=== PATIENT | female | born 1930 | race Caucasian/White ===

== ENCOUNTER 2017-08-28 00:52 | Inpatient (IN) | payer MEDICARE ==
[2017-08-28] MEDS ORDERED: NS 0.9% 1000 ML* 1,000 ML IV ONE (01:28)
[2017-08-28] MEDS ORDERED: NS 0.9% 1000 ML* 1,000 ML IV SCH (01:45)
[2017-08-28 02:52] LABS: Hematocrit 40 % (35-47); Hemoglobin 13.7 g/dl (12.0-16.0); Mean Corpuscular HGB Conc 34 g/dl (31-36); Mean Corpuscular Hemoglobin 27 pg (27-31); Mean Corpuscular Volume 79 fL (80-97); Mean Platelet Volume 9 um3 (7.4-10.4); Red Blood Count 5.14 10^6/ul (4.0-5.4); Red Cell Distribution Width 17 % (10.5-15)
[2017-08-28 03:08] LABS: Albumin 3.6 g/dL (3.2-5.2); BUN/Creatinine Ratio 15.1 (8-20); Calcium 9.1 mg/dL (8.6-10.3); EGFR African American 80.7 (>60); EGFR Non-African American 62.7 (>60); Globulin 2.7 g/dL (2-4); Magnesium 1.8 mg/dL (1.9-2.7); Potassium 3.4 mmol/L (3.5-5.0); Total Bilirubin 0.7 mg/dL (0.2-1.0); Total Protein 6.3 g/dL (6.4-8.9)
[2017-08-28] MEDS ORDERED: Acetaminophen SUPP* 650 MG SUPP PR PRN (04:02)
[2017-08-28] MEDS ORDERED: Ondansetron INJ* 2 MG/ML VIAL IV PRN (04:06)
[2017-08-28] MEDS ORDERED: HYDROmorphone INJ* 1 MG/ML CARPUJECT SYRINGE IV PRN (04:06)
--- NOTE | 2017-08-28 04:13 | HP ---
H&P (Free Text) History and Physical: PCP: Lakeisha Torres MD Date/Time: 08/28/2017 0410 CC: abdominal pain HPI: Mrs Christensen is an 87YO female HX cholecystectomy & ovarian CA treated in part with surgery. She presented to [place] ED with complaint of abdominal pain & N/V. She is uncertain as to onset stating, "I'm an old lady and don't remember too well." She thinks her last BM was 2 days ago and unremarkable. She does not recall passing flatus yesterday. [place] work up identified an SBO for which she was transferred for surgical consultation and for control of her intractable N/V. She denies F/C, sweats, bloody/black content in the emesis, chest pain, SOB, or other issues. Upon arrival to ED an NG was inserted to suction yielding 350cc thin green fluid and resolving her nausea. Additionally, the ED physician was able to reduce a left abdominal wall hernia with subsequent resolution of her pain. As such, we will admit her to the surgical unit, monitor NG output, and consider initiating clear liquids this AM pending clinical course. PMedHx HTN ovarian CA, no evidence of disease Ambulatory Orders Calcium 1,200 mg PO DAILY 08/28/17 Cholecalciferol [Vitamin D] 1,000 unit PO DAILY 08/28/17 Garlic [Odorless Garlic] 1,250 mg PO DAILY 08/28/17 Hydrochlorothiazide TAB* [Hydrodiuril TAB*] 25 mg PO DAILY 08/28/17 Allergies No Known Allergies Allergy (Verified 08/28/17 01:03) PSurgHx ovarian CA surgery cholecystectomy SocHx: no tobacco or recreational drugs, 1 alcoholic drink yearly; , lives alone, 2 children who live in the area; full code status FamHx: denies; children are healthy ROS: as above, otherwise reviewed and all were negative vitals: Vital Signs Temp 36.9 C 08/28/17 05:07 Pulse 80 08/28/17 04:58 Resp 16 08/28/17 01:02 BP 136/63 08/28/17 05:00 Pulse Ox 90 08/28/17 04:58 Intake & Output 08/27/17 08/27/17 08/28/17 11:59 23:59 11:59 Intake Total 148 Output Total 300 Balance -152 Weight 80.286 kg Intake: IV Fluids 148 Output: NG Tube Drainage Amount 300 Constitutional: NAD, normally developed, overweight elderly white female HEENM: atraumatic; sclera/conjunctiva: anicteric/clear; hearing: clinically intact; oropharynx: clear, mucosa moist Neck: soft tissue: non-tender; thyroid: normal Pulmonary: clear to auscultation bilaterally, good aeration, no accessory muscle use CV: RR/RR, normal S1S2, no carotid bruit, no jugular venous distention, 2+ B DP/ PT, no edema Abdominal: soft, non-distended, mild R lateral tenderness, no rebound/guarding/ rigidity, normoactive bowel sounds, no hepatosplenomegaly or masses, no costovertebral angle tenderness Musculoskeletal: general: grossly intact, no palpable tenderness Integumental: normal appearance and texture of exposed skin Psychiatric orientation: AA&O to PPS affect: calm mood: pleasant, cooperative eye contact: good content: reliable memory: impaired responses: timely insight: good Testing: Lab Results 08/28/17 08/28/17 08/28/17 Range/Units 02:33 02:33 02:33 WBC (3.5-10.8) 10^3/ul RBC (4.0-5.4) 10^6/ul Hgb (12.0-16.0) g/dl Hct (35-47) % MCV (80-97) fL MCH (27-31) pg MCHC (31-36) g/dl RDW (10.5-15) % Plt Count (150-450) 10^3/ul MPV (7.4-10.4) um3 Neut % (Auto) (38-83) % Lymph % (Auto) (25-47) % [place] % (Auto) (1-9) % Eos % (Auto) (0-6) % Baso % (Auto) (0-2) % Absolute Neuts (auto) (1.5-7.7) 10^3/ul Absolute Lymphs (auto) (1.0-4.8) 10^3/ul Absolute Monos (auto) (0-0.8) 10^3/ul Absolute Eos (auto) (0-0.6) 10^3/ul Absolute Basos (auto) (0-0.2) 10^3/ul Absolute Nucleated RBC 10^3/ul Nucleated RBC % INR (Anticoag Therapy) 1.00 (0.89-1.11) APTT 29.1 (26.0-36.3) seconds Sodium 136 (133-145) mmol/L Potassium 3.4 L (3.5-5.0) mmol/L Chloride 100 L (101-111) mmol/L Carbon Dioxide 29 (22-32) mmol/L Anion Gap 7 (2-11) mmol/L BUN 13 (6-24) mg/dL Creatinine 0.86 (0.51-0.95) mg/dL Est GFR ( Amer) 80.7 (>60) Est GFR (Non-Af Amer) 62.7 (>60) BUN/Creatinine Ratio 15.1 (8-20) Glucose 128 H (70-100) mg/dL Lactic Acid (0.5-2.0) mmol/L Calcium 9.1 (8.6-10.3) mg/dL Magnesium 1.8 L (1.9-2.7) mg/dL Total Bilirubin 0.70 (0.2-1.0) mg/dL AST 26 (13-39) U/L ALT 27 (7-52) U/L Alkaline Phosphatase 68 (34-104) U/L C-Reactive Protein 51.00 H (< 5.00) mg/L Total Protein 6.3 L (6.4-8.9) g/dL Albumin 3.6 (3.2-5.2) g/dL Globulin 2.7 (2-4) g/dL Albumin/Globulin Ratio 1.3 (1-3) Amylase 22 L (29-103) U/L Lipase 17 (11.0-82.0) U/L Urine Color Urine Appearance Urine pH (5-9) Ur Specific [place] (1.010-1.030) Urine Protein (Negative) Urine Ketones (Negative) Urine Blood (Negative) Urine Nitrate (Negative) Urine Bilirubin (Negative) Urine Urobilinogen (Negative) Ur Leukocyte Esterase (Negative) Urine WBC (Auto) (Absent) Urine RBC (Auto) (Absent) Ur Squamous Epith Cells (Absent) Ur Renal Epithelial Cell (Absent) Urine Bacteria (Absent) Urine Glucose (Negative) Blood Type Pending Antibody Screen Pending 08/28/17 08/28/17 08/28/17 Range/Units 02:33 02:33 03:27 WBC 12.0 H (3.5-10.8) 10^3/ul RBC 5.14 (4.0-5.4) 10^6/ul Hgb 13.7 (12.0-16.0) g/dl Hct 40 (35-47) % MCV 79 L (80-97) fL MCH 27 (27-31) pg MCHC 34 (31-36) g/dl RDW 17 H (10.5-15) % Plt Count 228 (150-450) 10^3/ul MPV 9 (7.4-10.4) um3 Neut % (Auto) 81.9 (38-83) % Lymph % (Auto) 11.3 L (25-47) % [place] % (Auto) 5.3 (1-9) % Eos % (Auto) 0.6 (0-6) % Baso % (Auto) 0.9 (0-2) % Absolute Neuts (auto) 9.8 H (1.5-7.7) 10^3/ul Absolute Lymphs (auto) 1.4 (1.0-4.8) 10^3/ul Absolute Monos (auto) 0.6 (0-0.8) 10^3/ul Absolute Eos (auto) 0.1 (0-0.6) 10^3/ul Absolute Basos (auto) 0.1 (0-0.2) 10^3/ul Absolute Nucleated RBC 0 10^3/ul Nucleated RBC % 0 INR (Anticoag Therapy) (0.89-1.11) APTT (26.0-36.3) seconds Sodium (133-145) mmol/L Potassium (3.5-5.0) mmol/L Chloride (101-111) mmol/L Carbon Dioxide (22-32) mmol/L Anion Gap (2-11) mmol/L BUN (6-24) mg/dL Creatinine (0.51-0.95) mg/dL Est GFR ( Amer) (>60) Est GFR (Non-Af Amer) (>60) BUN/Creatinine Ratio (8-20) Glucose (70-100) mg/dL Lactic Acid 0.9 (0.5-2.0) mmol/L Calcium (8.6-10.3) mg/dL Magnesium (1.9-2.7) mg/dL Total Bilirubin (0.2-1.0) mg/dL AST (13-39) U/L ALT (7-52) U/L Alkaline Phosphatase (34-104) U/L C-Reactive Protein (< 5.00) mg/L Total Protein (6.4-8.9) g/dL Albumin (3.2-5.2) g/dL Globulin (2-4) g/dL Albumin/Globulin Ratio (1-3) Amylase (29-103) U/L Lipase (11.0-82.0) U/L Urine Color Narda Urine Appearance Cloudy Urine pH 5.0 (5-9) Ur Specific [place] 1.020 (1.010-1.030) Urine Protein Negative (Negative) Urine Ketones Trace H (Negative) Urine Blood Negative (Negative) Urine Nitrate Negative (Negative) Urine Bilirubin Negative (Negative) Urine Urobilinogen Negative (Negative) Ur Leukocyte Esterase 3+ H (Negative) Urine WBC (Auto) 3+(>20/hpf) H (Absent) Urine RBC (Auto) 2+(6-10/hpf) H (Absent) Ur Squamous Epith Cells Present H (Absent) Ur Renal Epithelial Cell Present H (Absent) Urine Bacteria Absent (Absent) Urine Glucose Negative (Negative) Blood Type Antibody Screen ECG, personally reviewed: sinus RBBB rate 80, T-wave inversions V1-2 & III, no ischemia CXR, personally reviewed: poor inspiration, no acute process XRY abd, personally reviewed: dilated bowel with scattered air/fluid levels consistent with SBO CT abd/pel WO, personally reviewed: (Carlos) FINDINGS: Positive for small bowel obstruction. There are multiple dilated loops of small bowel with air- fluid levels. The source of the obstruction might be a left lower anterior abdominal wall hernia. The small bowel loops distal to the hernia do have air- fluid levels and are mildly dilated but less so than the proximal loops. It is therefore difficult to confirm that the hernia is actually the source of the bowel obstruction. Recommend re-evaluation after hernia reduction. No free air. Extensive sigmoid diverticulosis. No diverticulitis or colitis. Normal appendix. No acute abnormalities of the liver, spleen, pancreas, or adrenal glands. No urinary tract obstruction. Impression: 87F presenting with abdominal pain, N/V with finding of SBO DIAGNOSIS & PLAN Primary SBO : likely 2nd LLQ abdominal wall hernia reduced in ED : NG to low intermittent suction : strict I&Os : IVFs : pain control : consider surgical consult pending clinical course : supportive care L abdominal wall hernia : reduced : consider inpatient consult for consideration of repair to prevent recurrence hypoKalemia & hypoMagnesemia : replace Secondary HTN : hold HCTZ for now, monitor HX ovarian CA : no evidence of disease Admission Rational: inpatient for SBO not anticipated to be adequately resolved w/i 48H to allow for discharge DVTp: SCDs, heparin SQ Code Status: full HCP: children
[2017-08-28 04:17] LABS: Urine Bacteria Absent (Absent); Urine Bilirubin Negative (Negative); Urine Glucose Negative (Negative); Urine Nitrite Negative (Negative)
--- NOTE | 2017-08-28 04:27 | ED ---
Mary Cerda Nilda, scribed for Clemencia Rivera MD on 08/28/17 at 0143 . GI/ HPI - HPI Summary HPI Summary: This patient is an 87 year old F BIBA from [facility] to [facility] for SBO today. Symptoms aggravated and alleviated nothing. Patient reports abd pain ( resolved), vomiting, and no BM for the past few days. Patient denies similar episode in the past. Medication includes hydrochlorothiazide. - History of Current Complaint Chief Complaint: EDAbdPain Time Seen by Provider: 08/28/17 01:12 Stated Complaint: BOWEL OBSTRUCTION Hx Obtained From: Patient, Medical Records Onset/Duration: Started Hours Ago, Still Present Timing: Constant Current Severity: None Location of Pain: Diffuse Additional Signs & Symptoms: Positive: Other: - abd pain (resolved), vomiting, and no BM for the past few days. Aggravating Factor(s): Nothing Alleviating Factor(s): Nothing - Allergy/Home Medications Allergies/Adverse Reactions: Allergies Allergy/AdvReac Type Severity Reaction Status Date / Time No Known Allergies Allergy Verified 08/28/17 01:03 Home Medications: Home Medications Calcium 1,200 mg PO DAILY 08/28/17 [History Confirmed 08/28/17] Cholecalciferol [Vitamin D] 1,000 unit PO DAILY 08/28/17 [History Confirmed ] Garlic [Odorless Garlic] 1,250 mg PO DAILY 08/28/17 [History Confirmed 08/28/17] Hydrochlorothiazide TAB* [Hydrodiuril TAB*] 25 mg PO DAILY 08/28/17 [History Confirmed 08/28/17] PMH/Surg Hx/FS Hx/Imm Hx Sensory History: Reports: Hx Contacts or Glasses EENT History: Denies: Hx Deafness Infectious Disease History: No Infectious Disease History: Denies: Traveled Outside the [place] in Last 30 Days Review of Systems Negative: Shortness Of Breath Positive: Abdominal Pain, Vomiting, Other - no BM All Other Systems Reviewed And Are Negative: Yes Physical Exam - Summary Physical Exam Summary: GENERAL: Patient is a well-developed and nourished (MALE OR FEMALE) who is lying comfortable in the stretcher. Patient is not in any acute respiratory distress. HEAD AND FACE: No signs of trauma. No ecchymosis, hematomas or skull depressions. No sinus tenderness. EYES: PERRLA, EOMI x 2, No injected conjunctiva, no nystagmus. EARS: Hearing grossly intact. Ear canals and tympanic membranes are within normal limits. MOUTH: Oropharynx within normal limits. NECK: Supple, trachea is midline, no adenopathy, no JVD, no carotid bruit, no c- spine tenderness, neck with full ROM. CHEST: Symmetric, no tenderness at palpation LUNGS: Clear to auscultation bilaterally. No wheezing or crackles. CVS: Regular rate and rhythm, S1 and S2 present, no murmurs or gallops appreciated. ABDOMEN: Soft, non-tender. Mild to moderate abd distention. No rebound no guarding. Bowel sounds are hyperactive. Small umbilical hernia and left ventral hernia in LLQ. EXTREMITIES: FROM in all major joints, no edema, no cyanosis or clubbing. NEURO: Alert and oriented x 3. No acute neurological deficits. Speech is normal and follows commands. SKIN: Dry and warm Triage Information Reviewed: Yes Vital Signs On Initial Exam: Initial Vitals Temp Pulse Resp BP Pulse Ox 98.6 F 75 16 134/67 94 08/28/17 01:02 08/28/17 01:02 08/28/17 01:02 08/28/17 01:02 08/28/17 01:02 Vital Signs Reviewed: Yes Procedures - Procedure Summary Procedure Summary: Pt placed in Trendelenburg position and reduced hernia. Diagnostics - Vital Signs Vital Signs Temp Pulse Resp BP Pulse Ox 08/28/17 01:02 98.6 F 75 16 134/67 94 - Laboratory Result Diagrams: 08/28/17 02:33 08/28/17 02:33 Lab Statement: Any lab studies that have been ordered have been reviewed, and results considered in the medical decision making process. - Radiology CXR Radiology Interpretation Completed By: ED Physician - EGT in good position. NAD. Abd XR Radiology Interpretation Completed By: ED Physician - Abd XR reveals that patient still has dilated SBO. - CT Abd/Pel CT Interpretation Completed By: Radiologist - CT Abd/Pel, per radiologist, reveals: there are no involutional changes with moderate ventriculomegaly. Recommend comparing with prior scans sure the ventriculomegaly has not worsened. Chronic microvascular changes in the cerebral white matter. No hemorrhage. No mass. No detectable acute infarct. Osseous structures are intact. ED physician has reviewed this radiology report and agrees. Abd/Pel Addendum CT Interpretation Completed By: Radiologist - CT Abd/Pel addendum: Positive for SBO. There are multiple dilated loops of small bowel with air fluid levels. The source of the obstruction might be a left lower anterior abdominal wall hernia. The small bowel loops distal to the hernia do have air-fluid levels and are mildly dilated but less so than the proximal loops. It is therefore more difficult to confirm that the hernia is actually the source of the bowel obstruction. Recommend reevaluation after hernia reduction. no free air. Extensive sigmoid diverticulosis. No diverticulitis or colitis. Normal appendix. No acute abnormalities of the liver, spleen, pancreas, or adrenal glands. No urinary tract obstruction. Note made also of a small periumbilical hernia containing no bowel. The L1 compression fracture indeterminate age. Mild loss of height of T10 indeterminate age. ED Physician has reviewed this report and agrees. - EKG 0203 Cardiac Rate: NL EKG Rhythm: Sinus Rhythm - 80 bpm EKG Interpretation: RBBB Re-Evaluation - Re-Evaluation First Eval Re-Evaluation Time: 02:50 Comment: Left ventral hernia in LLQ was reduced. Pt feels better. Sent for Abd Xray. Second Eval Re-Evaluation Time: 03:36 Comment: Pt feels better. Reviewed labs with patient. GIGU Course/Dx - Course Course Of Treatment: This patient is an 87 year old F BIBA from [facility] to [facility] for SBO today. Symptoms aggravated and alleviated nothing. Patient reports abd pain (resolved), vomiting, and no BM for the past few days. Patient denies similar episode in the past. Medication includes hydrochlorothiazide. Pending EKG, CXR, and CT Abd/Pel. CT Abd/Pel, per radiologist, reveals: there are no involutional changes with moderate ventriculomegaly. Recommend comparing with prior scans sure the ventriculomegaly has not worsened. Chronic microvascular changes in the cerebral white matter. No hemorrhage. No mass. No detectable acute infarct. Osseous structures are intact. ED physician has reviewed this radiology report and agrees. CT Abd/Pel addendum: Positive for SBO. There are multiple dilated loops of small bowel with air fluid levels. The source of the obstruction might be a left lower anterior abdominal wall hernia. The small bowel loops distal to the hernia do have air-fluid levels and are mildly dilated but less so than the proximal loops. It is therefore more difficult to confirm that the hernia is actually the source of the bowel obstruction. Recommend reevaluation after hernia reduction. no free air. Extensive sigmoid diverticulosis. No diverticulitis or colitis. Normal appendix. No acute abnormalities of the liver , spleen, pancreas, or adrenal glands. No urinary tract obstruction. Note made also of a small periumbilical hernia containing no bowel. The L1 compression fracture indeterminate age. Mild loss of height of T10 indeterminate age. EKG reveals NSR, 80 bpm, RBBB. CXR reveals NAD. Left ventral hernia reduced and pt felt better. Pending Abd XR. Abd XR reveals that patient still has dilated SBO. [0356] Dr. Quinn (hospitalist) agrees to admit patient. Pt is stable and will be admitted with Dx of SBO and abdominal hernia. Pt understands and is agreeable with this plan. - Diagnoses Provider Diagnoses: SBO (small bowel obstruction), Hernia of abdominal cavity - Physician Notifications Discussed Care Of Patient With: Josef Quinn - Hospitalist Time Discussed With Above Provider: 03:56 Instructed by Provider To: Admit As Inpatient Discharge - Discharge Plan Condition: Stable Disposition: ADMITTED TO [facility] Referrals: Brian ROSALES,Andrei Castillo [Primary Care Provider] - The documentation as recorded by the Mary vásquez Nilda accurately reflects the service I personally performed and the decisions made by , Clemencia Rivera MD.
[2017-08-28] MEDS: NS 0.9% 1000 ML* 1,000 ML IV SCH ×2 (05:24→20:06)
[2017-08-28] MEDS ORDERED: KCL 20 MEQ/100 ML IVPREMIX* 20 MEQ/100 ML BAG IV ONE (05:44)
[2017-08-28] MEDS ORDERED: Magnesium Sulfate 2 GM IV* 2 GM/50 ML BAG IVPB ONE (05:44)
[2017-08-28 06:23] LABS: Hematocrit 39 % (35-47); Hemoglobin 13.2 g/dl (12.0-16.0); Mean Corpuscular HGB Conc 33 g/dl (31-36); Mean Corpuscular Hemoglobin 27 pg (27-31); Mean Corpuscular Volume 79 fL (80-97); Mean Platelet Volume 9 um3 (7.4-10.4); Red Blood Count 4.96 10^6/ul (4.0-5.4); Red Cell Distribution Width 18 % (10.5-15); White Blood Count 10.6 10^3/ul (3.5-10.8)
[2017-08-28 06:38] LABS: BUN/Creatinine Ratio 13.8 (8-20); Calcium 8.6 mg/dL (8.6-10.3); EGFR African American 79.6 (>60); EGFR Non-African American 61.9 (>60); Potassium 3.4 mmol/L (3.5-5.0)
--- NOTE | 2017-08-28 08:44 | RAD ---
INDICATION: Follow-up small bowel obstruction COMPARISON: CT abdomen pelvis dated August 27, 2017. TECHNIQUE: 2 views the abdomen were obtained. FINDINGS: There is a gastric tube terminating below the level the diaphragm at the expected location of the gastric antrum. In the left abdomen there is gas filled dilated small bowel measuring up to 3.9 cm in diameter corresponding to CT images acquired the previous day. There is gas and stool seen throughout the nondilated colon. There is no evidence of free air in the peritoneal cavity. Extensive surgical material is seen overlying the abdomen. IMPRESSION: AIR-FILLED DILATED LOOPS OF SMALL BOWEL MEASURING UP TO 3.9 CM IN DIAMETER CORRESPONDING TO FINDINGS SEEN ON THE PREVIOUS DAY CT. THERE IS NO RADIOGRAPHIC EVIDENCE OF BOWEL PERFORATION.
--- NOTE | 2017-08-28 09:37 | RAD ---
INDICATION: Placement of nasogastric tube COMPARISON: CT abdomen pelvis dated August 27, 2017 TECHNIQUE: Single AP portable view of the chest and 6 views of the abdomen were obtained. FINDINGS: Image quality is compromised due to the relative inferiority of a portable chest x-ray. There is a questionable 3 cm density overlying the right hilum relative to the left. The patient appears to be making a poor inspiratory effort causing the lung volumes appear decreased. The lungs are otherwise adequately aerated. There is a gastric tube terminating below the midline diaphragm with the tip overlying the expected location of the gastric antrum. There are dilated loops of air-filled small bowel measuring up to 4 cm in diameter. IMPRESSION: 1. Questionable asymmetric 3 cm density overlying the right hilum relative to the left. There is no prior chest imaging available for comparison to comment on chronicity. Further characterization could BE made with either standard multiview chest x-ray or contrast-enhanced CT of the chest on a nonemergent basis. 2. Appropriately positioned gastric tube according to radiographic standards. 3. Dilated loops of air-filled small bowel measuring up to 4 cm in diameter similar to images on the prior CT.
--- NOTE | 2017-08-28 09:58 | PN ---
Subjective Date of Service: 08/28/17 Interval History: HOSPITALIST PROGRESS NOTE Patient seen and examined at bedside. She feels better this AM. Abdominal pain is resolved, no further episodes of N/V , passed flatus earlier today. Family History: Unchanged from Admission Social History: Unchanged from Admission Past Medical History: Unchanged from Admission Objective Active Medications: Acetaminophen (Tylenol Supp*) 650 mg DE Q6H PRN PRN Reason: FEVER/PAIN Heparin Sodium (Porcine) (Heparin Vial(*)) 5,000 units SUBCUT Q8HR MARIE Hydromorphone HCl (Dilaudid Injic*) 0.5 mg IV Q2H PRN PRN Reason: PAIN Sodium Chloride (Ns 0.9% 1000 Ml*) 1,000 mls @ 85 mls/hr IV PER [facility] Last Admin: 08/28/17 05:24 Dose: 85 mls/hr Potassium Chloride (Potassium Chloride 10 Meq/50 Ml Ivpremix*) 10 meq in 50 mls @ 50 mls/hr IV Q2H [facility] Stop: 08/28/17 12:59 Ondansetron HCl (Zofran Inj*) 4 mg IV Q6H PRN PRN Reason: NAUSEA Vital Signs 08/28/17 08/28/17 08/28/17 05:00 05:07 06:16 Temperature 98.4 F 99.0 F Pulse Rate 83 Respiratory 20 Rate Blood Pressure 136/63 155/71 (mmHg) O2 Sat by Pulse 93 Oximetry Oxygen Devices in Use Now: None Appearance: Elderly lady lying in bed in NAD. Eyes: No Scleral Icterus Ears/Nose/Mouth/Throat: Mucous Membranes Moist Neck: Trachea Midline Respiratory: Symmetrical Chest Expansion and Respiratory Effort, Clear to Auscultation Cardiovascular: RRR - Normal S1 and S2 Abdominal: - - Infraumbilical old midline surgical scar, soft, NT, ND, BS+ and hypoactive Extremities: No Edema Neurological: Alert and Oriented x 3, NL Muscle Strength and Tone Lines/Tubes/Other Access: Clean, Dry and Intact Naso-enteral Tube, Clean, Dry and Intact Peripheral IV Result Diagrams: 08/28/17 06:15 08/28/17 06:15 Assess/Plan/Problems-Billing Assessment: Mrs. Christensen is an 87yo F with PMH of HTN, ovarian CA s/p resection, transferred from [facility] with c/o abdominal pain, N/V, found to have an episode of SBO. - Patient Problems (1) SBO (small bowel obstruction) Comment: - Likely secondary to ventral hernia reduced in ED. - Symptoms are much improved. - D/c NGT and start clear liquid diet. - Surgery consult requested with Dr. Shaw. (2) Hypokalemia Comment: - Replete. (3) HTN (hypertension) Comment: - PO meds on hold for now. - Hydralazine IV PRN. (4) DVT prophylaxis Comment: - SQ heparin. (5) Full code status Status and Disposition: Inpatient for management of SBO.
[2017-08-28] MEDS ORDERED: hydrALAZINE IV* 20 MG/ML VIAL IV SLOW PU PRN (10:03)
[2017-08-28] MEDS: KCL 10 MEQ/50 ML IVPREMIX* 10 MEQ/50 ML BAG IV SCH ×2 (11:22→13:36)
--- NOTE | 2017-08-28 12:16 | CONS ---
CC: Dr. Andrei Torres; [facility] * SURGICAL CONSULTATION REPORT: DATE OF CONSULT: The patient seen on short stay unit on 08/28/17. HISTORY OF PRESENT ILLNESS: I was contacted by the hospitalist service to evaluate Ms. Christensen, an 87-year-old female who presented to [facility] yesterday with a 2-day history of upper abdominal pain, cramping, and nausea and vomiting. The patient's workup there included a CT scan and labs and the patient was diagnosed with a small bowel obstruction and transferred to our institution. She was admitted by the hospitalist service and overnight was given IV fluids and had an NG tube placed, approximately 250 cc of output was noted and the NG tube was removed this morning and the patient was started on a clear diet. The patient states that she is supposed to follow up with her ear, nose, and throat doctor after an excision of a chin lesion 2 weeks prior. She was unable to make that appointment on Friday because she was not feeling well. Her memory of all of this is somewhat poor, but I received the notes also from the medical record as well as from the patient. She continued to have nausea and vomiting and kept a vomit basin with her. This let to her not eating food because then she would not be nauseous. She was burping a fair amount. She does not recall obstipation or constipation. She does not recall her last bowel movement, but it was recorded in the chart as 2 days prior to the admission. The patient denies any previous similar symptoms. Her abdominal pain that she describes is not significant, but rather crampy in the upper abdomen, nonradiating and described as "gas pains." PAST MEDICAL HISTORY: Hypertension and ovarian cancer. PAST SURGICAL HISTORY: Cholecystectomy and possible oophorectomy, she is not sure of the side. MEDICATIONS: Medication list reviewed. SOCIAL HISTORY: She lives alone. She is . Her children are nearby and look after her. REVIEW OF SYSTEMS: No significant weight loss or weight gain. No fevers or chills. Abdominal complaints as described. Nausea as described. No dysuria. Not aware of constipation. Poor exercise tolerance. No bleeding or clotting disorders. No endocrine disorders. PHYSICAL EXAM: She is afebrile. T-max 99. Vital signs are stable. She is alert and oriented x3. She is in no apparent distress. She does have appetite. Head, ears, eyes, nose, and throat: Normocephalic and atraumatic. Sclerae anicteric. Mucous membranes are moist. Neck: No lymphadenopathy. Abdomen is soft and nondistended. Tender at the umbilicus on deep palpation. Ventral hernia is noted in the lower abdomen on the left side. This appears large and is easily reducible, but there is some tenderness. There are no overlying skin changes. No rebound tenderness. The patient's tenderness was resolved as soon as the examination was over. She has hypoactive bowel sounds. No masses. Rectal exam not performed. Extremities: Within normal limits. LABORATORY DATA: Labs show white count of 10, H and H 13/39. Chemistry panel within normal limits with the exception of a low potassium. Her magnesium is 1.8 yesterday and she had an elevated CRP of 51. Urinalysis is negative for nitrites. CT scan through the [place] reviewed. This is a noncontrast study shows dilated loops of bowel extending towards the left lower quadrant hernia, appears broad necked with possibly decompressed bowel at the exit site consistent with possible small bowel obstruction. She does have stool and air in the colon. Today, the patient underwent an x-ray, which does show mildly dilated small bowel loops up to 3.9 cm. IMPRESSION AND PLAN: Elderly woman with ventral hernia, unclear of the time line of this hernia, but I would imagine it is a quite longstanding. It appears broad necked and did I believe lead to a small bowel obstruction over the course of this week. The patient is improved with IV fluids. She may additionally benefit with a bowel regimen. Hernia goes in and out with ease, but I would recommend strong consideration of repair either laparoscopically or open to prevent additional trips to the hospital for what amounts of small bowel obstruction with a possibility that this is secondary to the ventral hernia. I described with her that we would like to consider her for a surgical option as an outpatient. She would like to defer to her daughter. I do not believe she warrants urgent surgical intervention at this time. We will follow her as she is hospitalized and look towards the followup as an outpatient. [id number]/[facility] #: [id number] MTDD
[2017-08-29 05:46] LABS: BUN/Creatinine Ratio 12.8 (8-20); EGFR African American 90.3 (>60); EGFR Non-African American 70.2 (>60); Magnesium 2.2 mg/dL (1.9-2.7); Potassium 3.8 mmol/L (3.5-5.0)
[2017-08-29] MEDS ORDERED: Heparin VIAL(*) 5000 UNITS/ML VIAL (FIVE THOUSAND) SUBCUT SCH (06:00)
--- NOTE | 2017-08-29 07:41 | PN ---
Progress Note - Progress Note Date of Service: 08/29/17 Note: Surgery Ms. Christensen reports she feels better, she is hungry, she has passed flatus, she denies nausea. Vital Signs 08/28/17 08/28/17 08/28/17 08:00 11:32 15:48 Temperature 98.2 F 97.7 F Pulse Rate 73 74 Respiratory 16 16 16 Rate Blood Pressure 133/63 125/53 (mmHg) O2 Sat by Pulse 94 96 Oximetry 08/28/17 08/28/17 08/28/17 19:44 20:20 23:44 Temperature 97.3 F 98.4 F Pulse Rate 72 77 Respiratory 16 16 17 Rate Blood Pressure 136/62 145/61 (mmHg) O2 Sat by Pulse 96 96 Oximetry 08/29/17 03:28 Temperature 98.5 F Pulse Rate 69 Respiratory 16 Rate Blood Pressure 136/60 (mmHg) O2 Sat by Pulse 93 Oximetry Abd: Protruberant, good BS, soft, hernias at umbilicus and left lower abd are non-tender, reducible. Laboratory Results - last 24 hr 08/29/17 04:59 Sodium 136 Potassium 3.8 Chloride 106 Carbon Dioxide 27 Anion Gap 3 BUN 10 Creatinine 0.78 Est GFR ( Amer) 90.3 Est GFR (Non-Af Amer) 70.2 BUN/Creatinine Ratio 12.8 Glucose 106 H Calcium 8.0 L Magnesium 2.2 A/P: Resolving SBO possibly secondary to abdominal wall hernias. From surgical standpoint it is okay to advance diet and plan outpatient f/u for consideratioin of repair of hernias.
[2017-08-29 12:12] VITALS: BP 141/65
--- NOTE | 2017-08-30 20:11 | DS ---
CC: Dr. Andrei Torres; Dr. Shaw DISCHARGE SUMMARY: DATE OF ADMISSION: 08/28/17 DATE OF DISCHARGE: 08/29/17 PRIMARY CARE PROVIDER: Dr. Andrei Torres. CONSULTING SURGEON: Dr. Shaw. DISCHARGE DIAGNOSIS: Small bowel obstruction secondary to a ventral hernia. SECONDARY DIAGNOSES: 1. Hypertension. 2. History of ovarian carcinoma, status post resection. MEDICATIONS AT THE TIME OF DISCHARGE: 1. Calcium 1200 mg p.o. daily. 2. Cholecalciferol 1000 units p.o. daily. 3. Garlic 1250 mg p.o. daily. 4. Hydrochlorothiazide 25 mg p.o. daily. HOSPITAL COURSE: Mrs. Christensen is an 87-year-old lady with a past medical history as stated above that presented initially to [facility] ED with complaints of abdominal pain, nausea, and vomiting. The workup at [facility] revealed SBO and she was transferred to our facility for surgical evaluation. In the emergency room, the ED provider was able to reduce a ventral hernia and an NG tube was placed and the patient had significant improvement of her symptoms. Her KUB showed improvement. Her NG tube was removed and she was able to tolerate a clear liquid diet. She was seen in consultation by General Surgery (Dr. Shaw), his impression was that the patient is an elderly woman with ventral hernia, unclear of the timeline of the hernia, but he thought it was quite longstanding. It appears broad necked and he believes it led to small bowel obstruction over the course of this past week. The hernia goes in and out with ease, but he recommended strong consideration of repair either laparoscopically or open to prevent additional trips to the hospital for small bowel obstruction with a possibility that this is secondary to the ventral hernia. The patient's diet was advanced. She was able to tolerate a low fiber diet and she was discharged home to follow up with Dr. Torres and and Dr. Shaw as outpatient. PHYSICAL EXAMINATION: Vital Signs: Temperature 97.5, heart rate is 81, respiratory rate 16, oxygen saturation is 95% on room air, blood pressure is 139 /70. General: The patient is an elderly lady lying in bed in no acute distress. CVS: Normal S1, S2. Regular rate and rhythm. Chest: Breath sounds present bilaterally with no added sounds. Abdomen is obese, soft, nontender, and nondistended. Bowel sounds present. The ventral hernia is reduced. Extremities: No edema. Neuro: She is alert, oriented x3. Able to move all 4 extremities. DIET: Low-fiber diet for 2 weeks. ACTIVITIES: As tolerated. DISPOSITION: To home. STATUS WHILE IN THE HOSPITAL: Inpatient. TIME SPENT: Approximately 45 minutes was spent to complete this discharge. [id number]/[facility] #: [id number] TRAY
== END 2017-08-29 14:15 | disposition home or self-care (01) | DRG 395 ==
LOC: ED 00:52 → SSU 03:59
PROVIDERS: ADMIT Hospitalist; ATTEND Internal Medicine
PROC: 0D9670Z Drainage of Stomach with Drainage Device, Via Natural or Artificial Opening (ICD-10-PCS; principal; 2017-08-28)
DX: K43.6 Other and unspecified ventral hernia with obstruction, without gangrene (principal); E83.42 Hypomagnesemia; E87.6 Hypokalemia; E66.3 Overweight; I10 Essential (primary) hypertension; Z85.43 Personal history of malignant neoplasm of ovary; Z90.49 Acquired absence of other specified parts of digestive tract; Z68.28 Body mass index [BMI] 28.0-28.9, adult
CPT/HCPCS: 36415; 71010; 74000; 74020; 80048; 80053; 81003; 81015; 82150; 83605; 83690; 83735; 85025; 85027; 85610; 85730; 86140; 86850; 86900; 86901; 87040; 87086; 93005; A9270-GY; J1644; J3475; J3480

== ENCOUNTER 2017-08-30 15:09 | Inpatient (IN) | payer MEDICARE ==
[2017-08-30 17:57] LABS: Albumin 3.9 g/dL (3.2-5.2); BUN/Creatinine Ratio 11.3 (8-20); EGFR African American 100.6 (>60); EGFR Non-African American 78.2 (>60); Globulin 2.6 g/dL (2-4); Potassium 3.6 mmol/L (3.5-5.0); Total Bilirubin 0.9 mg/dL (0.2-1.0); Total Protein 6.5 g/dL (6.4-8.9)
[2017-08-30 17:58] LABS: Hematocrit 41 % (35-47); Hemoglobin 13.6 g/dl (12.0-16.0); Mean Corpuscular HGB Conc 33 g/dl (31-36); Mean Corpuscular Hemoglobin 27 pg (27-31); Mean Corpuscular Volume 80 fL (80-97); Mean Platelet Volume 9 um3 (7.4-10.4); Red Blood Count 5.11 10^6/ul (4.0-5.4); Red Cell Distribution Width 17 % (10.5-15); White Blood Count 7.9 10^3/ul (3.5-10.8)
--- NOTE | 2017-08-30 18:11 | RAD ---
INDICATION: Abdominal pain. COMPARISON: Comparison is made with prior studies from August 28, 2017. TECHNIQUE: Supine and upright views of the abdomen were obtained. FINDINGS: There is moderate distention of multiple small bowel loops with air-fluid levels. The colon appears nondistended. There are surgical clips which project in the right upper and in both lower quadrants. No free intraperitoneal air is seen although the study is limited due to cutting off the tops of the diaphragms. IMPRESSION: FINDINGS CONSISTENT WITH A SMALL BOWEL OBSTRUCTION.
--- NOTE | 2017-08-30 20:09 | HP ---
H&P (Free Text) History and Physical: PCP: Lakeisha Torres MD Date/Time: 08/30/20171999 CC: abdominal pain HPI: Mrs Christensen is an 87YO female HX cholecystectomy & ovarian CA treated in part with surgery. She originally presented to [facility] ED 08/28 with complaint of abdominal pain & N/V where a ventral hernia and SBO was diagnosed and she was transferred to [facility] [place] [place], observed overnight after her hernia was reduced in ED and her SBO appeared to have resolved and she was discharged 08/29. She awoke ~0200 this AM with recurrent generalized abdominal pain, nausea and dry heaves that have persisted prompting re-evaluation wherein an abdominal XRY confirms SBO. As such, she will be admitted, maintained NPO, given anti-emetics , & Tyrone Joel MD surgery has been consulted. PMedHx HTN ovarian CA, no evidence of disease Ambulatory Orders Calcium 1,200 mg PO DAILY 08/28/17 Cholecalciferol [Vitamin D] 1,000 unit PO DAILY 08/28/17 Garlic [Odorless Garlic] 1,250 mg PO DAILY 08/28/17 Hydrochlorothiazide TAB* [Hydrodiuril TAB*] 25 mg PO DAILY 08/28/17 Allergies No Known Allergies Allergy (Verified 08/28/17 01:03) SocHx: no tobacco or recreational drugs, 1 alcoholic drink yearly; , lives alone, 2 children who live in the area; full code status FamHx: denies; children are healthy ROS: as above, otherwise reviewed and all were negative vitals: Vital Signs Temp 36.4 C 08/30/17 15:25 Pulse 81 08/30/17 15:25 Resp 16 08/30/17 15:25 BP 139/70 08/30/17 15:25 Pulse Ox 95 08/30/17 15:25 Intake & Output 08/29/17 08/30/17 08/30/17 23:59 11:59 23:59 Weight 80.286 kg Constitutional: NAD, normally developed, overweight elderly white female HEENM: atraumatic; sclera/conjunctiva: anicteric/clear; hearing: clinically intact; oropharynx: clear, mucosa moist Neck: soft tissue: non-tender; thyroid: normal Pulmonary: clear to auscultation bilaterally, good aeration, no accessory muscle use CV: RR/RR, normal S1S2, no carotid bruit, no jugular venous distention, 2+ B DP/ PT, no edema Abdominal: soft, non-distended, mild latrice-umbilical tenderness, no rebound/ guarding/rigidity, normoactive bowel sounds, no hepatosplenomegaly or masses, no costovertebral angle tenderness; There is suggestion of a knuckle of bowel through her ventral hernia defect which is mild/moderately tender with sufficient pressure, but which I cannot reduce. Musculoskeletal: general: grossly intact, no palpable tenderness Integumental: normal appearance and texture of exposed skin Psychiatric orientation: AA&O to PPS affect: calm mood: pleasant, cooperative eye contact: good content: reliable memory: impaired responses: timely insight: good Testing: Lab Results 08/30/17 08/30/17 Range/Units 17:20 17:20 WBC 7.9 (3.5-10.8) 10^3/ul RBC 5.11 (4.0-5.4) 10^6/ul Hgb 13.6 (12.0-16.0) g/dl Hct 41 (35-47) % MCV 80 (80-97) fL MCH 27 (27-31) pg MCHC 33 (31-36) g/dl RDW 17 H (10.5-15) % Plt Count 256 (150-450) 10^3/ul MPV 9 (7.4-10.4) um3 Neut % (Auto) 73.4 (38-83) % Lymph % (Auto) 17.8 L (25-47) % [place] % (Auto) 6.4 (1-9) % Eos % (Auto) 1.7 (0-6) % Baso % (Auto) 0.7 (0-2) % Absolute Neuts (auto) 5.8 (1.5-7.7) 10^3/ul Absolute Lymphs (auto) 1.4 (1.0-4.8) 10^3/ul Absolute Monos (auto) 0.5 (0-0.8) 10^3/ul Absolute Eos (auto) 0.1 (0-0.6) 10^3/ul Absolute Basos (auto) 0.1 (0-0.2) 10^3/ul Absolute Nucleated RBC 0.01 10^3/ul Nucleated RBC % 0.2 Sodium 134 (133-145) mmol/L Potassium 3.6 (3.5-5.0) mmol/L Chloride 100 L (101-111) mmol/L Carbon Dioxide 26 (22-32) mmol/L Anion Gap 8 (2-11) mmol/L BUN 8 (6-24) mg/dL Creatinine 0.71 (0.51-0.95) mg/dL Est GFR ( Amer) 100.6 (>60) Est GFR (Non-Af Amer) 78.2 (>60) BUN/Creatinine Ratio 11.3 (8-20) Glucose 118 H (70-100) mg/dL Calcium 9.0 (8.6-10.3) mg/dL Total Bilirubin 0.90 (0.2-1.0) mg/dL AST 16 (13-39) U/L ALT 21 (7-52) U/L Alkaline Phosphatase 73 (34-104) U/L Total Protein 6.5 (6.4-8.9) g/dL Albumin 3.9 (3.2-5.2) g/dL Globulin 2.6 (2-4) g/dL Albumin/Globulin Ratio 1.5 (1-3) XRY abd, personally reviewed: dilated bowel with scattered air/fluid levels consistent with SBO Impression: 87F presenting with abdominal pain, N/V with finding of SBO DIAGNOSIS & PLAN Primary SBO ? 2nd ventral/latrice-umbilical wall hernia : likely 2nd LLQ abdominal wall hernia reduced in ED : strict I&Os : IVFs : pain control : Tyrone Joel MD surgery consulted, will arrange evaluation in AM : supportive care Secondary HTN : hold HCTZ for now, monitor HX ovarian CA : no evidence of disease Admission Rational: inpatient for SBO not anticipated to be adequately resolved w/i 48H to allow for discharge DVTp: SCDs, heparin SQ Code Status: full HCP: children
[2017-08-30] MEDS ORDERED: Acetaminophen SUPP* 650 MG SUPP PR PRN (20:16)
[2017-08-30] MEDS ORDERED: LORazepam INJ* 2 MG/ML 1 ML VIAL IV PRN (20:16)
[2017-08-30] MEDS ORDERED: fentaNYL* 50 MCG/ML 2 ML VIAL (100 MCG VIAL) IV SLOW PU PRN (20:16)
[2017-08-30] MEDS ORDERED: NS 0.9% 1000 ML* 1,000 ML IV SCH (20:30)
[2017-08-30] MEDS ORDERED: Famotidine IV * 20 MG in NS 0.9% 100 ML* 100 ML IVPB SCH (21:00)
[2017-08-30 21:15] LABS: EGFR African American 94.5 (>60); EGFR Non-African American 73.4 (>60)
[2017-08-30] MEDS: Famotidine IV* 10 MG/ML 2 ML (20 mg) IV SCH (22:44)
--- NOTE | 2017-08-30 23:44 | ED ---
Bibi Cerda Gabriel, scribed for Twin Dawn MD on 08/30/17 at 1845 . Abdominal Pain/Female - HPI Summary HPI Summary: This patient is a 87 year old F [facility] [place] by daughter with a chief complaint of gagging and dry heaving since this morning. Pt compares these symptoms with ones she had with her SBO 3 days ago. - History of Current Complaint Chief Complaint: EDAbdPain Stated Complaint: BOWEL OBSTRUCTION Time Seen by Provider: 08/30/17 18:26 Hx Obtained From: Patient Onset/Duration: Still Present Timing: Constant Pain Intensity: 0 Pain Scale Used: 0-10 Numeric Allergies/Adverse Reactions: Allergies Allergy/AdvReac Type Severity Reaction Status Date / Time No Known Allergies Allergy Verified 08/28/17 01:03 PMH/Surg Hx/FS Hx/Imm Hx Previously Healthy: No GI History: Reports: Hx Gall Bladder Disease Musculoskeletal History: Reports: Hx Back Problems Sensory History: Reports: Hx Contacts or Glasses Denies: Hx Deafness, Hx Hearing Aid Opthamlomology History: Reports: Hx Contacts or Glasses - Cancer History Cancer Type, Location and Year: Ovarian cancer - Surgical History Surgery Procedure, Year, and Place: [place]. Total hysterectomy Infectious Disease History: No Infectious Disease History: Denies: Hx Clostridium Difficile, Hx Hepatitis, Traveled Outside the [place] in Last 30 Days - Social History Alcohol Use: Rare Alcohol Amount: twice a year Substance Use Type: Reports: None Smoking Status (MU): Never Smoked Tobacco Review of Systems Negative: Fever, Chills Negative: Erythema Negative: Sore Throat Negative: Chest Pain Negative: Shortness Of Breath, Cough Positive: Abdominal Pain. Negative: Vomiting, Nausea Negative: dysuria, hematuria Negative: Myalgia, Edema Negative: Rash Neurological: Negative - dizziness All Other Systems Reviewed And Are Negative: Yes Physical Exam - Summary Physical Exam Summary: Constitutional: Well-developed, Well-nourished, Alert. (-) Distressed Skin: Warm, Dry HENT: Normocephalic; Atraumatic Eyes: Conjunctiva normal Neck: Musculoskeletal ROM normal neck. (-) JVD, (-) Stridor, (-) Tracheal deviation Cardio: Rhythm regular, rate normal, Heart sounds normal; Intact distal pulses; The pedal pulses are 2+ and symmetric. Radial pulses are 2+ and symmetric. (-) Murmur Pulmonary/Chest wall: Effort normal. (-) Respiratory distress, (-) Wheezes, (-) Rales Abd: Soft, (+) Tenderness to right of umbilicus, (-) Distension, (-) Guarding, ( -) Rebound, no palpable hernias. Musculoskeletal: (-) Edema Lymph: (-) Cervical adenopathy Neuro: Alert, Oriented x3 Psych: Mood and affect Normal Triage Information Reviewed: Yes Vital Signs On Initial Exam: Initial Vitals Temp Pulse Resp BP Pulse Ox 97.5 F 81 16 139/70 95 08/30/17 15:25 08/30/17 15:25 08/30/17 15:25 08/30/17 15:25 08/30/17 15:25 Vital Signs Reviewed: Yes - David Coma Scale Coma Scale Total: 15 Diagnostics - Vital Signs Vital Signs Temp Pulse Resp BP Pulse Ox 08/30/17 15:25 97.5 F 81 16 139/70 95 - Laboratory Lab Results: Lab Results 08/30/17 08/30/17 Range/Units 17:20 17:20 WBC 7.9 (3.5-10.8) 10^3/ul RBC 5.11 (4.0-5.4) 10^6/ul Hgb 13.6 (12.0-16.0) g/dl Hct 41 (35-47) % MCV 80 (80-97) fL MCH 27 (27-31) pg MCHC 33 (31-36) g/dl RDW 17 H (10.5-15) % Plt Count 256 (150-450) 10^3/ul MPV 9 (7.4-10.4) um3 Neut % (Auto) 73.4 (38-83) % Lymph % (Auto) 17.8 L (25-47) % [place] % (Auto) 6.4 (1-9) % Eos % (Auto) 1.7 (0-6) % Baso % (Auto) 0.7 (0-2) % Absolute Neuts (auto) 5.8 (1.5-7.7) 10^3/ul Absolute Lymphs (auto) 1.4 (1.0-4.8) 10^3/ul Absolute Monos (auto) 0.5 (0-0.8) 10^3/ul Absolute Eos (auto) 0.1 (0-0.6) 10^3/ul Absolute Basos (auto) 0.1 (0-0.2) 10^3/ul Absolute Nucleated RBC 0.01 10^3/ul Nucleated RBC % 0.2 Sodium 134 (133-145) mmol/L Potassium 3.6 (3.5-5.0) mmol/L Chloride 100 L (101-111) mmol/L Carbon Dioxide 26 (22-32) mmol/L Anion Gap 8 (2-11) mmol/L BUN 8 (6-24) mg/dL Creatinine 0.71 (0.51-0.95) mg/dL Est GFR ( Amer) 100.6 (>60) Est GFR (Non-Af Amer) 78.2 (>60) BUN/Creatinine Ratio 11.3 (8-20) Glucose 118 H (70-100) mg/dL Calcium 9.0 (8.6-10.3) mg/dL Total Bilirubin 0.90 (0.2-1.0) mg/dL AST 16 (13-39) U/L ALT 21 (7-52) U/L Alkaline Phosphatase 73 (34-104) U/L Total Protein 6.5 (6.4-8.9) g/dL Albumin 3.9 (3.2-5.2) g/dL Globulin 2.6 (2-4) g/dL Albumin/Globulin Ratio 1.5 (1-3) Result Diagrams: 08/30/17 17:20 08/30/17 17:20 Lab Statement: Any lab studies that have been ordered have been reviewed, and results considered in the medical decision making process. - Radiology XRAY ABD Radiology Interpretation Completed By: Radiologist - FINDINGS CONSISTENT WITH A SMALL BOWEL OBSTRUCTION. ED physician has reviewed this radiology report and agrees. Abdominal Pain Fem Course/Dx - Course Course Of Treatment: This patient is a 87 year old F [facility] [place] by daughter with a chief complaint of gagging and dry heaving since this morning. Pt compares these symptoms with ones she had with her SBO 3 days ago. Blood work was obtained. ABD XR reveals, per radiologist, FINDINGS CONSISTENT WITH A SMALL BOWEL OBSTRUCTION. In the ED course the patient was given Acetaminophen, Famotidine, Pentanyl Citrate, Heparin Citrate, Heparin sodium, Lorazepam, Ondansetron HCL, and sodium Chloride. We discussed patient care with Dr joel and they recommended no EG tube, admittance to medicine service, and diagnoses of SBO. Patient will be admitted for a SBO with follow up from Dr. Quinn. The patient is agreeable with this plan. - Diagnoses Provider Diagnoses: SBO (small bowel obstruction) - Provider Notifications Discussed Care Of Patient With: Katerina Joel Time Discussed With Above Provider: 19:07 Instructed by Provider To: Other - We discussed patient care with Dr joel and they recommended no EG tube, admittance to medicine service, and a diagnoses of SBO. Discharge - Discharge Plan Condition: Stable Disposition: ADMITTED TO [facility] Referrals: Andrei Torres DO [Primary Care Provider] - Consult Consult: 19:[address] Quinn , hospitalist and he has agreed to admit the patient. The documentation as recorded by the Bibi vásquez Gabriel accurately reflects the service I personally performed and the decisions made by , Twin Dawn MD.
[2017-08-31] MEDS: Heparin VIAL(*) 5000 UNITS/ML VIAL (FIVE THOUSAND) SUBCUT SCH ×3 (05:25→21:20)
[2017-08-31 05:31] LABS: Hematocrit 37 % (35-47); Hemoglobin 12.6 g/dl (12.0-16.0); Mean Corpuscular HGB Conc 34 g/dl (31-36); Mean Corpuscular Hemoglobin 27 pg (27-31); Mean Corpuscular Volume 79 fL (80-97); Mean Platelet Volume 9 um3 (7.4-10.4); Red Blood Count 4.71 10^6/ul (4.0-5.4); Red Cell Distribution Width 17 % (10.5-15); White Blood Count 8.7 10^3/ul (3.5-10.8)
[2017-08-31 05:43] LABS: BUN/Creatinine Ratio 11.4 (8-20); Calcium 8.5 mg/dL (8.6-10.3); EGFR African American 102.3 (>60); EGFR Non-African American 79.5 (>60); Potassium 3.5 mmol/L (3.5-5.0)
[2017-08-31] MEDS: Famotidine IV* 10 MG/ML 2 ML (20 mg) IV SCH ×2 (08:05→21:21)
[2017-08-31] MEDS ORDERED: Morphine INJ* 2 MG/ML 1 ML SYRINGE (TWO MG - NEW SYRINGE VERSION) IV PRN (08:19)
--- NOTE | 2017-08-31 08:20 | PN ---
Subjective Date of Service: 08/31/17 Interval History: HOSPITALIST PROGRESS NOTE Patient seen and examined at bedside. States abdominal pain is improved and she's hungry. Denies N/V. No flatus or BM. Family History: Unchanged from Admission Social History: Unchanged from Admission Past Medical History: Unchanged from Admission Objective Active Medications: Acetaminophen (Tylenol Supp*) 650 mg NM Q6H PRN PRN Reason: FEVER/PAIN Famotidine (Pepcid Iv*) 20 mg IV BID [facility] Last Admin: 08/31/17 08:05 Dose: 20 mg Heparin Sodium (Porcine) (Heparin Vial(*)) 5,000 units SUBCUT Q8HR [facility] Last Admin: 08/31/17 05:25 Dose: 5,000 units Potassium Chloride/Sodium Chloride (Ns 0.9% W/ 40 Meq Kcl 1000 Ml*) 1,000 mls @ 125 mls/hr IV PER RATE [facility] Lorazepam (Ativan Inj*) 0.5 mg IV BEDTIME PRN PRN Reason: SLEEP Morphine Sulfate (Morphine Inj (Syringe)*) 2 mg IV Q4H PRN PRN Reason: PAIN Ondansetron HCl (Zofran Inj*) 4 mg IV Q6H PRN PRN Reason: NAUSEA Vital Signs 08/31/17 03:20 Temperature 98.3 F Pulse Rate 75 Respiratory 16 Rate Blood Pressure 135/42 (mmHg) O2 Sat by Pulse 98 Oximetry Oxygen Devices in Use Now: None Appearance: Elderly overweight lady lying in bed in [facility]. Eyes: No Scleral Icterus Ears/Nose/Mouth/Throat: Mucous Membranes Moist Neck: Trachea Midline Respiratory: Symmetrical Chest Expansion and Respiratory Effort, Clear to Auscultation Cardiovascular: RRR - Normal S1 and S2 Abdominal: - - Soft, NT, ND, BS+ hypoactive Neurological: Alert and Oriented x 3, NL Muscle Strength and Tone Lines/Tubes/Other Access: Clean, Dry and Intact Peripheral IV Result Diagrams: 08/31/17 05:01 08/31/17 05:01 Assess/Plan/Problems-Billing Assessment: Mrs. Christensen is an 87yo F with PMH of HTN, ovarian CA s/p resection, transferred from [facility] with c/o abdominal pain, N/V, found to have an episode of SBO. - Patient Problems (1) SBO (small bowel obstruction) Comment: - Surgery input appreciated. - Patient has no complaints of chest pain or dyspnea with exertion, EKG shows no ischemic changes, only APCs and PVCs. RCRI is 1, predicting a 1% risk of cardiac complications. - She's optimized for proposed procedure. - Keep NPO and follow serial KUBs. (2) HTN (hypertension) Comment: - Controlled. - PO meds on hold for now. - Hydralazine IV PRN. (3) DVT prophylaxis Comment: - SQ heparin. (4) Full code status Status and Disposition: Inpatient.
--- NOTE | 2017-08-31 08:47 | CONSULT ---
Consult Consult: Surgery Consult Asked by hospitalist service to evaluate Ms. Christensen who returned with recurrent signs of SBO. She had been discharged from the hospital on 08/29 after her SBO appeared to resolve, but overnight that day she developed recurrent abdominal pain and vomiting. Upon re-presenting to the ER she was found to have SBO by abdominal films. At the time of her 08/29 discharge, the plan had been to arrange outpt f/u and surgery for her abdominal wall hernia that was thought to be the cause of her SBO. PMHx, Meds, ALL, FH, all unchanged from recent admission. Vital Signs 08/30/17 08/30/17 08/30/17 15:25 18:44 18:45 Temperature 97.5 F Pulse Rate 81 73 Respiratory 16 Rate Blood Pressure 139/70 130/66 (mmHg) O2 Sat by Pulse 95 94 Oximetry 08/30/17 08/30/17 08/30/17 19:00 19:30 19:34 Temperature Pulse Rate 82 80 Respiratory Rate Blood Pressure 125/68 128/48 (mmHg) O2 Sat by Pulse 93 93 Oximetry 08/30/17 08/30/17 08/30/17 20:44 20:45 22:15 Temperature 97.3 F Pulse Rate 76 75 Respiratory 16 Rate Blood Pressure 140/70 138/68 (mmHg) O2 Sat by Pulse 93 95 Oximetry 08/30/17 08/30/17 08/31/17 22:24 22:53 00:00 Temperature 97.3 F Pulse Rate 75 Respiratory 16 16 Rate Blood Pressure 138/68 (mmHg) O2 Sat by Pulse 95 95 Oximetry 08/31/17 03:20 Temperature 98.3 F Pulse Rate 75 Respiratory 16 Rate Blood Pressure 135/42 (mmHg) O2 Sat by Pulse 98 Oximetry PE: unchanged except abdomen is soft and non-tender. There is a moderate umbilical hernia, but the LLQ hernia is not now protruding. Intake & Output 08/30/17 08/31/17 08/31/17 22:59 06:59 14:59 Intake Total 0 0 Balance 0 0 Weight 177 lb Intake: Oral 0 0 Other: Estimated Void Medium Laboratory Results - last 24 hr 08/30/17 08/30/17 08/30/17 17:20 17:20 20:40 WBC 7.9 RBC 5.11 Hgb 13.6 Hct 41 MCV 80 MCH 27 MCHC 33 RDW 17 H Plt Count 256 MPV 9 Neut % (Auto) 73.4 Lymph % (Auto) 17.8 L [place] % (Auto) 6.4 Eos % (Auto) 1.7 Baso % (Auto) 0.7 Absolute Neuts (auto) 5.8 Absolute Lymphs (auto) 1.4 Absolute Monos (auto) 0.5 Absolute Eos (auto) 0.1 Absolute Basos (auto) 0.1 Absolute Nucleated RBC 0.01 Nucleated RBC % 0.2 INR (Anticoag Therapy) 1.02 APTT 29.3 Sodium 134 Potassium 3.6 Chloride 100 L Carbon Dioxide 26 Anion Gap 8 BUN 8 Creatinine 0.71 Est GFR ( Amer) 100.6 Est GFR (Non-Af Amer) 78.2 BUN/Creatinine Ratio 11.3 Glucose 118 H Calcium 9.0 Total Bilirubin 0.90 AST 16 ALT 21 Alkaline Phosphatase 73 Total Protein 6.5 Albumin 3.9 Globulin 2.6 Albumin/Globulin Ratio 1.5 08/30/17 08/31/17 08/31/17 20:40 05:01 05:01 WBC 8.7 RBC 4.71 Hgb 12.6 Hct 37 MCV 79 L MCH 27 MCHC 34 RDW 17 H Plt Count 232 MPV 9 Neut % (Auto) 72.3 Lymph % (Auto) 17.2 L [place] % (Auto) 7.8 Eos % (Auto) 2.0 Baso % (Auto) 0.7 Absolute Neuts (auto) 6.3 Absolute Lymphs (auto) 1.5 Absolute Monos (auto) 0.7 Absolute Eos (auto) 0.2 Absolute Basos (auto) 0.1 Absolute Nucleated RBC 0 Nucleated RBC % 0.1 INR (Anticoag Therapy) APTT Sodium 135 Potassium 3.5 Chloride 104 Carbon Dioxide 25 Anion Gap 6 BUN 9 8 Creatinine 0.75 0.70 Est GFR ( Amer) 94.5 102.3 Est GFR (Non-Af Amer) 73.4 79.5 BUN/Creatinine Ratio 11.4 Glucose 93 Calcium 8.5 L Total Bilirubin AST ALT Alkaline Phosphatase Total Protein Albumin Globulin Albumin/Globulin Ratio A/P: Intermittent SBO possibly related to an abdominal wall hernia. As she did not tolerate the recent discharge, she will need to have surgery at this admission. Likely surgery will involve laparoscopic or open remediation of the SBO and repair of the the abdominal wall hernias. Will discuss with my surgical colleagues to determine when this can happen. [place]
[2017-08-31] MEDS: NS 0.9% w/ 40 Meq KCL 1000 ML* 1,000 ML IV SCH ×2 (09:36→17:51)
--- NOTE | 2017-08-31 09:37 | RAD ---
INDICATION: Small bowel obstruction. COMPARISON: Comparison is made with a prior study from August 30, 2017. TECHNIQUE: Frontal supine films of the abdomen were obtained. FINDINGS: There is mild distention of the small bowel which appears slightly less distended than on the prior exam most consistent with a distal partial small bowel obstruction. The colon is nondistended. There are multiple surgical clips in the right upper quadrant and surgical clips present in the left lower quadrant. IMPRESSION: MILD PARTIAL DISTAL SMALL BOWEL OBSTRUCTION DEMONSTRATING SLIGHT IMPROVEMENT.
[2017-08-31] MEDS: Ondansetron INJ* 2 MG/ML VIAL IV PRN (15:10)
[2017-08-31] MEDS ORDERED: hydrALAZINE IV* 20 MG/ML VIAL IV SLOW PU PRN (15:44)
[2017-09-01] MEDS: NS 0.9% w/ 40 Meq KCL 1000 ML* 1,000 ML IV SCH (01:46)
[2017-09-01] MEDS: Heparin VIAL(*) 5000 UNITS/ML VIAL (FIVE THOUSAND) SUBCUT SCH ×3 (05:31→22:27)
[2017-09-01 06:11] LABS: Hematocrit 33 % (35-47); Hemoglobin 10.9 g/dl (12.0-16.0); Mean Corpuscular HGB Conc 34 g/dl (31-36); Mean Corpuscular Hemoglobin 27 pg (27-31); Mean Corpuscular Volume 81 fL (80-97); Mean Platelet Volume 9 um3 (7.4-10.4); Red Blood Count 4.03 10^6/ul (4.0-5.4); Red Cell Distribution Width 17 % (10.5-15); White Blood Count 6.4 10^3/ul (3.5-10.8)
[2017-09-01 06:31] LABS: BUN/Creatinine Ratio 13.4 (8-20); Calcium 7.8 mg/dL (8.6-10.3); EGFR African American 107.6 (>60); EGFR Non-African American 83.7 (>60); Potassium 4.2 mmol/L (3.5-5.0)
[2017-09-01] MEDS: Famotidine IV* 10 MG/ML 2 ML (20 mg) IV SCH ×2 (08:29→19:40)
[2017-09-01] MEDS ORDERED: ceFOXitin 2 GM IVPREMIX* 2 GM/50 ML BAG ONE (11:03)
[2017-09-01] MEDS ORDERED: fentaNYL* 50 MCG/ML 2 ML VIAL (100 MCG VIAL) ONE ×2 (11:43→12:34)
[2017-09-01] MEDS ORDERED: Propofol* 10 MG/ML 20 ML BTL IV PUSH ONE ×2 (11:57→13:29)
[2017-09-01] MEDS ORDERED: Succinylcholine* 20 MG/ML 10 ML VIAL ONE (11:57)
[2017-09-01] MEDS ORDERED: Ondansetron INJ* 2 MG/ML VIAL ONE (11:57)
[2017-09-01] MEDS ORDERED: Phenylephrine IV* 40 MCG/ML 10 ML SYRINGE ONE (11:57)
[2017-09-01] MEDS ORDERED: Dexamethasone IV* 4 MG/ML 1 ML (4 MG) ONE (11:57)
[2017-09-01] MEDS ORDERED: Lidocaine 2% PF * 5 ML VIAL ONE (11:57)
[2017-09-01] MEDS ORDERED: EPHEDrine (Pressors)* 50 MG/ML VIAL ONE (12:02)
--- NOTE | 2017-09-01 12:44 | PN ---
Subjective Date of Service: 09/01/17 Interval History: HOSPITALIST PROGRESS NOTE Patient seen and examined at bedside. She offers no new complaints today. No flatus, no BM. C/o hunger. Family History: Unchanged from Admission Social History: Unchanged from Admission Past Medical History: Unchanged from Admission Objective Active Medications: Acetaminophen (Tylenol Supp*) 650 mg SD Q6H PRN PRN Reason: FEVER/PAIN Famotidine (Pepcid Iv*) 20 mg IV BID [facility] Last Admin: 09/01/17 08:29 Dose: 20 mg Heparin Sodium (Porcine) (Heparin Vial(*)) 5,000 units SUBCUT Q8HR [facility] Last Admin: 09/01/17 05:31 Dose: Not Given Hydralazine HCl (Apresoline Iv*) 5 mg IV SLOW PU Q6H PRN PRN Reason: SBP>180 Potassium Chloride/Sodium Chloride (Ns 0.9% W/ 40 Meq Kcl 1000 Ml*) 1,000 mls @ 125 mls/hr IV PER RATE [facility] Last Admin: 09/01/17 01:46 Dose: 125 mls/hr Lorazepam (Ativan Inj*) 0.5 mg IV BEDTIME PRN PRN Reason: SLEEP Morphine Sulfate (Morphine Inj (Syringe)*) 2 mg IV Q4H PRN PRN Reason: PAIN Ondansetron HCl (Zofran Inj*) 4 mg IV Q6H PRN PRN Reason: NAUSEA Last Admin: 08/31/17 15:10 Dose: 4 mg Vital Signs 09/01/17 09/01/17 07:12 07:20 Temperature 97.5 F Pulse Rate 74 Respiratory 16 16 Rate Blood Pressure 142/63 (mmHg) O2 Sat by Pulse 96 Oximetry Oxygen Devices in Use Now: None Appearance: Elderly lady lying in bed in NAD. Eyes: No Scleral Icterus Ears/Nose/Mouth/Throat: Mucous Membranes Moist Neck: Trachea Midline Respiratory: Symmetrical Chest Expansion and Respiratory Effort, Clear to Auscultation Cardiovascular: RRR - Normal S1 and S2 Abdominal: - - Soft, mild distention, NT, NG, NR, BS+ hypoactive Neurological: Alert and Oriented x 3, NL Muscle Strength and Tone Lines/Tubes/Other Access: Clean, Dry and Intact Peripheral IV Result Diagrams: 09/01/17 05:14 09/01/17 05:14 Assess/Plan/Problems-Billing Assessment: Mrs. Christensen is an 87yo F with PMH of HTN, ovarian CA s/p resection, transferred from [facility] with c/o abdominal pain, N/V, found to have an episode of SBO. - Patient Problems (1) SBO (small bowel obstruction) Comment: - Surgery input appreciated. - Patient has no complaints of chest pain or dyspnea with exertion, EKG shows no ischemic changes, only APCs and PVCs. RCRI is 1, predicting a 1% risk of cardiac complications. - She's optimized for proposed procedure. (2) HTN (hypertension) Comment: - Controlled. - PO meds on hold for now. - Hydralazine IV PRN. (3) DVT prophylaxis Comment: - SQ heparin. (4) Full code status Status and Disposition: Inpatient.
[2017-09-01] MEDS ORDERED: HYDROmorphone INJ* 1 MG/ML CARPUJECT SYRINGE IV PRN (14:14)
[2017-09-01] MEDS ORDERED: oxyCODONE/Acetamin 5/325 MG* TAB PO PRN (14:18)
--- NOTE | 2017-09-01 14:40 | PN ---
Progress Note - Progress Note Date of Service: 09/01/17 Note: Brief Operative note: Pre-op: Small bowel obstruction, Incarcerated ventral incisional hernia Post-op: Same Procedure: Exploratory laparotomy with lysis of adhesions and primary repair of VIH Surgeon: Dr. Mae Mash Tub Cooker Operator: EVANGELINA Frank Anaesthesia: GETA EBL: < 100 cc Fluids: LR 1300 cc Catheter: Flores to gravity Drains: VIRAL drain to self-suction Specimen: Hernia sac Findings: See dictated op note
[2017-09-01] MEDS: HYDROmorphone INJ* 1 MG/ML CARPUJECT SYRINGE IV PRN ×2 (15:56→17:09)
[2017-09-01] MEDS: Ondansetron INJ* 2 MG/ML VIAL IV PRN (16:01)
[2017-09-02] MEDS: HYDROmorphone INJ* 1 MG/ML CARPUJECT SYRINGE IV PRN ×2 (04:22→12:22)
[2017-09-02] MEDS: Heparin VIAL(*) 5000 UNITS/ML VIAL (FIVE THOUSAND) SUBCUT SCH ×3 (05:15→22:27)
[2017-09-02 05:45] LABS: Hematocrit 38 % (35-47); Hemoglobin 12.3 g/dl (12.0-16.0); Mean Corpuscular HGB Conc 33 g/dl (31-36); Mean Corpuscular Hemoglobin 26 pg (27-31); Mean Corpuscular Volume 80 fL (80-97); Mean Platelet Volume 9 um3 (7.4-10.4); Red Blood Count 4.74 10^6/ul (4.0-5.4); Red Cell Distribution Width 18 % (10.5-15)
[2017-09-02 06:10] LABS: BUN/Creatinine Ratio 12.3 (8-20); Calcium 8.1 mg/dL (8.6-10.3); EGFR African American 97.4 (>60); EGFR Non-African American 75.8 (>60); Potassium 4.3 mmol/L (3.5-5.0); Total Bilirubin 0.7 mg/dL (0.2-1.0)
[2017-09-02] MEDS: Famotidine IV* 10 MG/ML 2 ML (20 mg) IV SCH ×2 (08:35→19:34)
--- NOTE | 2017-09-02 13:56 | PN ---
Progress Note - Progress Note Date of Service: 09/02/17 SOAP: Subjective: I saw her initially at 0815 this morning She is doing well with minimal pain She is tolerating some water and has no N/V Ambulated to the doorway this morning Objective: Temp Pulse Resp BP Pulse Ox 97.5 F 84 20 130/60 95 09/02/17 11:22 09/02/17 11:22 09/02/17 12:22 09/02/17 11:22 09/02/17 11:22 Intake & Output 08/31/17 09/01/17 09/02/17 09/03/17 06:59 06:59 06:59 06:59 Intake Total 0 2797 2607 120 Output Total 300 1215 200 Balance 0 2497 1392 -80 Weight 177 lb 177 lb Intake: IV Fluids 2797 2477 LR 1487 NS 830 NS (0.9%) 40 meq KCL 1967 990 Oral 0 0 130 120 Output: VIRAL #1 15 Urine 300 200 Nuñez 1100 Estimated Blood Loss 100 Other: Estimated Void Medium Medium Date of Last Bowel 08/31/17 Movement # Bowel Movements 1 Estimated Stool Amount Small # Voids 1 PEX: Comfortable Lungs are clear with decreased breath sounds at the bases Abd is soft and non-distended. Dressing is intact VIRAL in place with some sanguinous fluid in bulb. Laboratory Results - last 24 hr 09/02/17 09/02/17 04:53 04:53 WBC 13.0 H RBC 4.74 Hgb 12.3 Hct 38 MCV 80 MCH 26 L MCHC 33 RDW 18 H Plt Count 299 MPV 9 Neut % (Auto) 82.3 Lymph % (Auto) 11.6 L [place] % (Auto) 5.4 Eos % (Auto) 0.1 Baso % (Auto) 0.6 Absolute Neuts (auto) 10.7 H Absolute Lymphs (auto) 1.5 Absolute Monos (auto) 0.7 Absolute Eos (auto) 0 Absolute Basos (auto) 0.1 Absolute Nucleated RBC 0.01 Nucleated RBC % 0.1 Sodium 136 Potassium 4.3 Chloride 106 Carbon Dioxide 19 L Anion Gap 11 BUN 9 Creatinine 0.73 Est GFR ( Amer) 97.4 Est GFR (Non-Af Amer) 75.8 BUN/Creatinine Ratio 12.3 Glucose 97 Calcium 8.1 L Total Bilirubin 0.70 AST 15 ALT 17 Alkaline Phosphatase 72 Total Protein 5.0 L Albumin 3.0 L Globulin 2.0 Albumin/Globulin Ratio 1.5 Assessment: POD # 1 s/p exlap repair of incarcerated incisional hernia with SBO Post-op ileus Plan: D/C nuñez Increase activity Advance diet as tolerated PPI and subq heparin
--- NOTE | 2017-09-02 17:16 | PN ---
Subjective Date of Service: 09/02/17 Interval History: Pain control OK. Little appetite, took small amount of juice only. Family History: Unchanged from Admission Social History: Unchanged from Admission Past Medical History: Unchanged from Admission Objective Active Medications: Acetaminophen (Tylenol Tab*) 650 mg PO Q4H PRN PRN Reason: Pain Or Temperature >101 F Famotidine (Pepcid Iv*) 20 mg IV BID COUNTS INCLUDE 234 BEDS AT THE [facility] Last Admin: 09/02/17 08:35 Dose: 20 mg Heparin Sodium (Porcine) (Heparin Vial(*)) 5,000 units SUBCUT Q8HR COUNTS INCLUDE 234 BEDS AT THE [facility] Last Admin: 09/02/17 14:12 Dose: 5,000 units Hydralazine HCl (Apresoline Iv*) 5 mg IV SLOW PU Q6H PRN PRN Reason: SBP>180 Hydromorphone HCl (Dilaudid Injic*) 0.5 mg IV Q1H PRN PRN Reason: Pain - severe Last Admin: 09/02/17 12:22 Dose: 0.5 mg Lactated Ringer's (Lactated Ringers 1000 Ml Bag*) 1,000 mls @ 75 mls/hr IV PER RATE COUNTS INCLUDE 234 BEDS AT THE [facility] Last Admin: 09/02/17 05:15 Dose: 75 mls/hr Lorazepam (Ativan Inj*) 0.5 mg IV BEDTIME PRN PRN Reason: SLEEP Morphine Sulfate (Morphine Inj (Syringe)*) 2 mg IV Q4H PRN PRN Reason: PAIN Ondansetron HCl (Zofran Inj*) 4 mg IV Q6H PRN PRN Reason: NAUSEA Last Admin: 09/01/17 16:01 Dose: 4 mg Oxycodone/Acetaminophen (Percocet 5/325 Tab*) 1 tab PO Q4H PRN PRN Reason: PAIN Vital Signs 09/01/17 09/01/17 09/01/17 17:09 17:11 17:12 Temperature Pulse Rate Respiratory 18 18 Rate Blood Pressure (mmHg) O2 Sat by Pulse 95 Oximetry 09/01/17 09/01/17 09/01/17 17:47 18:34 19:47 Temperature 97.2 F Pulse Rate 89 Respiratory 18 18 18 Rate Blood Pressure 119/50 (mmHg) O2 Sat by Pulse 97 Oximetry 09/01/17 09/01/17 09/01/17 20:19 21:50 23:19 Temperature 98.1 F 98.7 F 98.2 F Pulse Rate 89 86 85 Respiratory 18 18 16 Rate Blood Pressure 134/61 137/58 128/62 (mmHg) O2 Sat by Pulse 97 97 97 Oximetry 09/02/17 09/02/17 09/02/17 02:47 03:20 04:22 Temperature 98.1 F Pulse Rate 80 Respiratory 17 16 Rate Blood Pressure 129/54 (mmHg) O2 Sat by Pulse 97 97 Oximetry 09/02/17 09/02/17 09/02/17 06:27 07:11 07:42 Temperature 98.3 F Pulse Rate 80 Respiratory 16 17 17 Rate Blood Pressure 123/57 (mmHg) O2 Sat by Pulse 95 95 Oximetry 09/02/17 09/02/17 09/02/17 08:33 11:22 12:22 Temperature 97.5 F Pulse Rate 84 Respiratory 17 20 Rate Blood Pressure 130/60 (mmHg) O2 Sat by Pulse 94 95 Oximetry 09/02/17 09/02/17 09/02/17 14:13 15:18 16:00 Temperature 98.3 F Pulse Rate 84 Respiratory 18 14 Rate Blood Pressure 132/54 (mmHg) O2 Sat by Pulse 94 94 Oximetry Oxygen Devices in Use Now: None Appearance: Alert, partly up in bed. In fair spirits. Looks tired but comfortable. Eyes: No Scleral Icterus Neck: NL Appearance and Movements; NL JVP, No Thyroid Enlargement, Masses Respiratory: Symmetrical Chest Expansion and Respiratory Effort, Clear to Auscultation, Clear to Percussion Cardiovascular: RRR, No Edema, - - soft systolic murmur across precordium Abdominal: - - Drain in place from abdomen, large bandage/binding in place. Some tenderness. Extremities: No Edema, No Clubbing, Cyanosis, - Skin: No Rash or Ulcers, No Nodules or Sclerosis, - Neurological: Alert and Oriented x 3, NL Sensation Result Diagrams: 09/02/17 04:53 09/02/17 04:53 Additional Lab and Data: Lab Results 08/30/17 08/30/17 Range/Units 17:20 17:20 WBC 7.9 (3.5-10.8) 10^3/ul RBC 5.11 (4.0-5.4) 10^6/ul Hgb 13.6 (12.0-16.0) g/dl Hct 41 (35-47) % MCV 80 (80-97) fL MCH 27 (27-31) pg MCHC 33 (31-36) g/dl RDW 17 H (10.5-15) % Plt Count 256 (150-450) 10^3/ul MPV 9 (7.4-10.4) um3 Neut % (Auto) 73.4 (38-83) % Lymph % (Auto) 17.8 L (25-47) % [place] % (Auto) 6.4 (1-9) % Eos % (Auto) 1.7 (0-6) % Baso % (Auto) 0.7 (0-2) % Absolute Neuts (auto) 5.8 (1.5-7.7) 10^3/ul Absolute Lymphs (auto) 1.4 (1.0-4.8) 10^3/ul Absolute Monos (auto) 0.5 (0-0.8) 10^3/ul Absolute Eos (auto) 0.1 (0-0.6) 10^3/ul Absolute Basos (auto) 0.1 (0-0.2) 10^3/ul Absolute Nucleated RBC 0.01 10^3/ul Nucleated RBC % 0.2 Sodium 134 (133-145) mmol/L Potassium 3.6 (3.5-5.0) mmol/L Chloride 100 L (101-111) mmol/L Carbon Dioxide 26 (22-32) mmol/L Anion Gap 8 (2-11) mmol/L BUN 8 (6-24) mg/dL Creatinine 0.71 (0.51-0.95) mg/dL Est GFR ( Amer) 100.6 (>60) Est GFR (Non-Af Amer) 78.2 (>60) BUN/Creatinine Ratio 11.3 (8-20) Glucose 118 H (70-100) mg/dL Calcium 9.0 (8.6-10.3) mg/dL Total Bilirubin 0.90 (0.2-1.0) mg/dL AST 16 (13-39) U/L ALT 21 (7-52) U/L Alkaline Phosphatase 73 (34-104) U/L Total Protein 6.5 (6.4-8.9) g/dL Albumin 3.9 (3.2-5.2) g/dL Globulin 2.6 (2-4) g/dL Albumin/Globulin Ratio 1.5 (1-3) Assess/Plan/Problems-Billing Assessment: Mrs. Christensen is an 87yo F with PMH of HTN, ovarian CA s/p resection, transferred from [facility] with c/o abdominal pain, N/V, found to have an episode of SBO. - Patient Problems (1) SBO (small bowel obstruction) Current Visit: Yes Status: Acute Code(s): K56.609 - UNSP INTESTNL OBST, UNSP TO PARTIAL VERSUS COMPLETE OBST SNOMED Code(s): 084809254 Comment: S/P exlap repair of incarcerated incisional hernia 09/01/17. Satisfactory p-op course. Advance diet as per Dr. Mae. (2) HTN (hypertension) Current Visit: Yes Status: Acute Code(s): I10 - ESSENTIAL (PRIMARY) HYPERTENSION SNOMED Code(s): 16169073 Comment: Thiazide on hold. (3) Hypokalemia Current Visit: No Status: Acute Code(s): E87.6 - HYPOKALEMIA SNOMED Code(s ): 80565497 Comment: Resolved. Status and Disposition: Inpatient.
--- NOTE | 2017-09-02 17:27 | OP ---
CC: Dr. Andrei Torres, [facility] * DATE OF OPERATION: 09/01/17 - ROOM #331 DATE OF : 34 SURGEON: Jean Marie Mae MD GUN SEALING MACHINE OPERATOR: EVANGELINA Tellez ANESTHESIOLOGIST: Dr. James. ANESTHESIA: General. PRE-OP DIAGNOSIS: Small bowel obstruction secondary to incarcerated ventral incisional hernia. POST-OP DIAGNOSIS: Small bowel obstruction secondary to incarcerated ventral incisional hernia. OPERATIVE PROCEDURE: Exploratory laparotomy with primary repair of a ventral incarcerated incisional hernia. ESTIMATED BLOOD LOSS: Less than 100 cc. IV FLUID: 1300 cc of crystalloid. URINE OUTPUT: 200 cc. SPECIMENS: None. DRAINS: A #10 VIRAL drain in the left subcutaneous space of the anterior abdominal wall. COMPLICATIONS: None. FINDINGS: The patient had a ventral incisional hernia at the lower portion of a previous midline incision, which is about 2.5 to 3 cm in diameter. There was a large amount of small bowel that had herniated up and was incarcerated into the subcutaneous space with a large sac to the left of midline and the anterior abdominal wall. This was reduced and the bowel, although somewhat congested and edematous, was completely viable and had some scar tissue at the neck which was freed, but no evidence of intrinsic obstruction once this was reduced. The remainder of the small bowel was unremarkable for obstruction, although there were some dense areas of adhesions from previous surgeries that were lysed. BRIEF HISTORY: Ms. Ruth Christensen is an 87-year-old woman who initially presented to [facility] and transferred to [facility] last week with abdominal pain, nausea, and obstipation. A CT scan showed what appeared to be a bowel obstruction probably secondary to an incarcerated ventral incisional hernia, which she was not sure that she had. This hernia was apparently reduced and she felt much better and was discharged home with plans for elective repair; however, she returned less than 24 hours later with severe abdominal pain, nausea and hernia that is nonreducible. Repeat abdominal x-rays showed findings consistent with a small bowel obstruction. She is now being taken to the operating room for an urgent repair of an incarcerated ventral incisional hernia. Procedure was discussed with the patient and her two daughters and the risks are, but not limited to bleeding, infection, intraabdominal abscess formation, injury to peritoneal and retroperitoneal structures, possibility of a bowel resection, possible ostomy, risks of general anesthesia, deep vein thrombosis, and expected recovery time and hospital stays were all discussed. DESCRIPTION OF PROCEDURE: Written informed consent was obtained, preoperative antibiotics were administered, and the abdomen was marked with indelible ink. The patient was taken to the operating room and placed in the supine position. Sequential compression devices and a warming blanket were applied. General anesthesia was administered. A Flores catheter was inserted. The abdomen was prepped and draped in the usual sterile fashion. Time-out verification was completed. A vertical incision was made just below the umbilicus down to several fingerbreadths above the pubis. This was carried down through the midline fascia where there was some scar tissue were able to enter the abdominal cavity ; however, there was some freely dense adhesions between the small bowel, omentum and the anterior abdominal wall, which were taken down sharply. It was about an hour and 15 minutes worth of dissection before we completely entered the abdomen and lysed adhesions from the omentum and small bowel. At this point, I was able to extend the incision down somewhat more inferiorly where we were able to identify the hernia, which is at the lower portion of the midline incision, which is about 3 cm in diameter. There was approximately a foot to a foot and a half of small bowel that was herniated up in this area. We were able to reduce this with pressure from outside and some gentle pulling. All the bowel appeared to be viable, although it was somewhat congested and edematous, but it pinked up nicely and there was no evidence of significant scarring at its neck, although I did lyse a few bands along the serosa where it had been with obvious trauma from the fascia. Once this was completed, I was able to run the entire small bowel from the ligament of Treitz down to the cecum. There was one area where I made a small serosal tear where the small bowel was densely adherent to the anterior abdominal wall and this was repaired with a 2 horizontal 3-0 silk sutures. We were able to follow the bowel all the way down into the terminal ileum. There were some adhesions down the pelvis, but the small bowel was completely collapsed in this area and I did not attempt to try to lyse portions of these adhesions as it entered the cecum, where it also appeared to be normal. It should be noted that the proximal small bowel was mildly distended, but not significantly so as to be expected from probably a complete small bowel obstruction. Next the hernia sac, which extended out into the left anterior abdominal wall was sharply removed from the subcutaneous tissue and sent for specimen. I undermined the left subcutaneous tissue exposing the fascia in anticipation of a primary repair. The abdominal wall was somewhat lax and the fascia appeared to be intact and I made a decision in the woman of 87 years old that I did not feel mesh was indicated. Also noted was a small umbilical hernia, which contained some fat and this was reduced and the fascia was debrided to healthy fascia. The skin had been somewhat knuckled in at the umbilical fold and I removed the umbilicus at the skin level. Once this was completed, I closed the midline fascia with an interrupted #1 Vicryl suture. There were two continuous running layers of 2-0 Vicryl layered suture were then placed in the subcutaneous tissue. Next, a #10 VIRAL drain was placed in the left subcutaneous space and brought out through a separate stab wound inferiorly on the left. This was sutured to the skin with 3-0 Polysorb suture. The skin was approximated with stapling device and dry sterile dressings were applied. The patient tolerated the procedure well, was sent to the recovery room in stable condition. [id number]/[facility] #: [id number] TRAY
[2017-09-02 22:06] LABS: Hematocrit 35 % (35-47); Hemoglobin 11.7 g/dl (12.0-16.0)
[2017-09-03] MEDS: HYDROmorphone INJ* 1 MG/ML CARPUJECT SYRINGE IV PRN (02:39)
[2017-09-03] MEDS: Heparin VIAL(*) 5000 UNITS/ML VIAL (FIVE THOUSAND) SUBCUT SCH ×3 (05:47→22:07)
[2017-09-03] MEDS: Famotidine IV* 10 MG/ML 2 ML (20 mg) IV SCH ×2 (08:46→22:07)
--- NOTE | 2017-09-03 10:11 | PN ---
Subjective Date of Service: 09/03/17 Interval History: Pain control good, asks for pain meds infrequently. Slept OK. No BM yet. Ate most of her clear liquid breakfast. No new c/o. Family History: Unchanged from Admission Social History: Unchanged from Admission Past Medical History: Unchanged from Admission Objective Active Medications: Acetaminophen (Tylenol Tab*) 650 mg PO Q4H PRN PRN Reason: Pain Or Temperature >101 F Famotidine (Pepcid Iv*) 20 mg IV BID [facility] Last Admin: 09/03/17 08:46 Dose: 20 mg Heparin Sodium (Porcine) (Heparin Vial(*)) 5,000 units SUBCUT Q8HR [facility] Last Admin: 09/03/17 05:47 Dose: 5,000 units Hydromorphone HCl (Dilaudid Injic*) 0.5 mg IV Q1H PRN PRN Reason: Pain - severe Last Admin: 09/03/17 02:39 Dose: 0.5 mg Lactated Ringer's (Lactated Ringers 1000 Ml Bag*) 1,000 mls @ 60 mls/hr IV ONCE ONE Stop: 09/04/17 01:34 Last Admin: 09/03/17 09:47 Dose: 60 mls/hr Lorazepam (Ativan Inj*) 0.5 mg IV BEDTIME PRN PRN Reason: SLEEP Morphine Sulfate (Morphine Inj (Syringe)*) 2 mg IV Q4H PRN PRN Reason: PAIN Ondansetron HCl (Zofran Inj*) 4 mg IV Q6H PRN PRN Reason: NAUSEA Last Admin: 09/01/17 16:01 Dose: 4 mg Oxycodone/Acetaminophen (Percocet 5/325 Tab*) 1 tab PO Q4H PRN PRN Reason: PAIN Vital Signs 09/02/17 09/02/17 09/02/17 11:22 12:22 14:13 Temperature 97.5 F Pulse Rate 84 Respiratory 17 20 18 Rate Blood Pressure 130/60 (mmHg) O2 Sat by Pulse 95 Oximetry 09/02/17 09/02/17 09/02/17 15:18 16:00 19:06 Temperature 98.3 F Pulse Rate 84 Respiratory 14 16 Rate Blood Pressure 132/54 (mmHg) O2 Sat by Pulse 94 94 Oximetry 09/02/17 09/02/17 09/03/17 19:22 23:14 02:39 Temperature 98.8 F 98.0 F Pulse Rate 95 92 Respiratory 18 18 22 Rate Blood Pressure 137/57 134/54 (mmHg) O2 Sat by Pulse 93 93 Oximetry 09/03/17 09/03/17 09/03/17 04:07 04:23 05:27 Temperature 98.1 F Pulse Rate 94 Respiratory 16 20 Rate Blood Pressure 112/46 (mmHg) O2 Sat by Pulse 92 92 Oximetry 09/03/17 09/03/17 07:11 08:03 Temperature 97.7 F Pulse Rate 88 Respiratory 16 Rate Blood Pressure 135/62 (mmHg) O2 Sat by Pulse 94 95 Oximetry Oxygen Devices in Use Now: None Appearance: Alert, in a chair. In good spirits. Looks comfortable. Eyes: No Scleral Icterus Respiratory: Symmetrical Chest Expansion and Respiratory Effort, Clear to Auscultation, Clear to Percussion Cardiovascular: RRR, No Edema, - - 2/6 systolic murmur across precordium Skin: No Rash or Ulcers, - - soft well circumscribed mass L chin, chronic. Neurological: Alert and Oriented x 3, NL Sensation Result Diagrams: 09/02/17 21:53 09/02/17 04:53 Additional Lab and Data: Lab Results 08/30/17 08/30/17 Range/Units 17:20 17:20 WBC 7.9 (3.5-10.8) 10^3/ul RBC 5.11 (4.0-5.4) 10^6/ul Hgb 13.6 (12.0-16.0) g/dl Hct 41 (35-47) % MCV 80 (80-97) fL MCH 27 (27-31) pg MCHC 33 (31-36) g/dl RDW 17 H (10.5-15) % Plt Count 256 (150-450) 10^3/ul MPV 9 (7.4-10.4) um3 Neut % (Auto) 73.4 (38-83) % Lymph % (Auto) 17.8 L (25-47) % [place] % (Auto) 6.4 (1-9) % Eos % (Auto) 1.7 (0-6) % Baso % (Auto) 0.7 (0-2) % Absolute Neuts (auto) 5.8 (1.5-7.7) 10^3/ul Absolute Lymphs (auto) 1.4 (1.0-4.8) 10^3/ul Absolute Monos (auto) 0.5 (0-0.8) 10^3/ul Absolute Eos (auto) 0.1 (0-0.6) 10^3/ul Absolute Basos (auto) 0.1 (0-0.2) 10^3/ul Absolute Nucleated RBC 0.01 10^3/ul Nucleated RBC % 0.2 Sodium 134 (133-145) mmol/L Potassium 3.6 (3.5-5.0) mmol/L Chloride 100 L (101-111) mmol/L Carbon Dioxide 26 (22-32) mmol/L Anion Gap 8 (2-11) mmol/L BUN 8 (6-24) mg/dL Creatinine 0.71 (0.51-0.95) mg/dL Est GFR ( Amer) 100.6 (>60) Est GFR (Non-Af Amer) 78.2 (>60) BUN/Creatinine Ratio 11.3 (8-20) Glucose 118 H (70-100) mg/dL Calcium 9.0 (8.6-10.3) mg/dL Total Bilirubin 0.90 (0.2-1.0) mg/dL AST 16 (13-39) U/L ALT 21 (7-52) U/L Alkaline Phosphatase 73 (34-104) U/L Total Protein 6.5 (6.4-8.9) g/dL Albumin 3.9 (3.2-5.2) g/dL Globulin 2.6 (2-4) g/dL Albumin/Globulin Ratio 1.5 (1-3) Assess/Plan/Problems-Billing Assessment: Mrs. Christensen is an 87yo F with PMH of HTN, ovarian CA s/p resection, transferred from [facility] with c/o abdominal pain, N/V, found to have an episode of SBO. - Patient Problems (1) SBO (small bowel obstruction) Current Visit: Yes Status: Acute Code(s): K56.609 - UNSP INTESTNL OBST, UNSP TO PARTIAL VERSUS COMPLETE OBST SNOMED Code(s): 534065385 Comment: S/P exlap repair of incarcerated incisional hernia 09/01/17. Satisfactory p-op course. Advance diet as per Dr. Mae. (2) HTN (hypertension) Current Visit: Yes Status: Acute Code(s): I10 - ESSENTIAL (PRIMARY) HYPERTENSION SNOMED Code(s): 49875484 Comment: Thiazide on hold. (3) Hypokalemia Current Visit: No Status: Acute Code(s): E87.6 - HYPOKALEMIA SNOMED Code(s ): 95391144 Comment: Resolved. Status and Disposition: Inpatient.
--- NOTE | 2017-09-03 11:21 | PN ---
Progress Note - Progress Note Date of Service: 09/03/17 SOAP: Subjective: She feels better this morning A small amount of flatus but she feels a little distended but no N/V Slept well last night No shortness of breath Objective: Temp Pulse Resp BP Pulse Ox 97.7 F 88 16 135/62 95 09/03/17 07:11 09/03/17 07:11 09/03/17 08:00 09/03/17 07:11 09/03/17 08:03 Intake & Output 09/01/17 09/02/17 09/03/17 09/04/17 06:59 06:59 06:59 06:59 Intake Total 2797 2607 2430 270 Output Total 300 1215 705 200 Balance 2497 1392 1725 70 Weight 177 lb Intake: IV Fluids 2797 2477 2000 LR 1487 2000 NS 830 NS (0.9%) 40 meq KCL 1967 990 Oral 0 130 430 270 Output: VIRAL #1 15 80 Urine 300 625 200 Flores 1100 Estimated Blood Loss 100 Other: Estimated Void Medium Large Date of Last Bowel 08/31/17 Movement # Bowel Movements 1 0 Estimated Stool Amount Small # Voids 1 1 PEX: She is comfortable-awake and alert Lungs with decreased breath sounds at the bases, no wheezes Abd is soft and distended. Bowel sounds are present and are hyperactive and slightly high pitched. Incision is clean and dry VIRAL in place with some serosanguinous fluid in bulb Assessment: POD# 2 s/p exlap and repair of incarcerated ventral incisional hernia Post op ileus HTN Plan: Continue with clear liquids-she is a little distended today and ileus persists- minimal po as tolerated Increase activity H2 violet and subq heparin Increase activity and pulmonary toilet. Recheck labs in AM
[2017-09-04] MEDS: Acetaminophen TAB* 325 MG PO PRN ×3 (04:30→21:33)
[2017-09-04 05:45] LABS: Hematocrit 32 % (35-47); Hemoglobin 10.9 g/dl (12.0-16.0); Mean Corpuscular HGB Conc 34 g/dl (31-36); Mean Corpuscular Hemoglobin 27 pg (27-31); Mean Corpuscular Volume 79 fL (80-97); Mean Platelet Volume 8 um3 (7.4-10.4); Red Blood Count 4.07 10^6/ul (4.0-5.4); Red Cell Distribution Width 17 % (10.5-15); White Blood Count 7.9 10^3/ul (3.5-10.8)
[2017-09-04 05:51] LABS: Add Diff/Slide Review? Slide Review Added; Comments Flag Yes
[2017-09-04 05:58] LABS: BUN/Creatinine Ratio 16.1 (8-20); Calcium 8.3 mg/dL (8.6-10.3); EGFR African American 132.3 (>60); EGFR Non-African American 102.9 (>60); Potassium 3.1 mmol/L (3.5-5.0)
[2017-09-04] MEDS: Heparin VIAL(*) 5000 UNITS/ML VIAL (FIVE THOUSAND) SUBCUT SCH ×3 (06:28→21:33)
[2017-09-04] MEDS: Famotidine IV* 10 MG/ML 2 ML (20 mg) IV SCH ×2 (09:48→21:33)
--- NOTE | 2017-09-04 11:05 | PN ---
Progress Note - Progress Note Date of Service: 09/04/17 Note: Surgery Progress: S: POD #3. Doing well: no sig pain; would like to move up in terms of diet (no N /V; passing flatus and stool. Ambulating; no SOB. Current Medications Acetaminophen (Tylenol Tab*) 650 mg PO Q4H PRN PRN Reason: Pain Or Temperature >101 F Last Admin: 09/04/17 09:47 Dose: 650 mg Famotidine (Pepcid Iv*) 20 mg IV BID [facility] Last Admin: 09/04/17 09:48 Dose: 20 mg Heparin Sodium (Porcine) (Heparin Vial(*)) 5,000 units SUBCUT Q8HR [facility] Last Admin: 09/04/17 06:28 Dose: 5,000 units Hydromorphone HCl (Dilaudid Injic*) 0.5 mg IV Q1H PRN PRN Reason: Pain - severe Last Admin: 09/03/17 02:39 Dose: 0.5 mg Lorazepam (Ativan Inj*) 0.5 mg IV BEDTIME PRN PRN Reason: SLEEP Morphine Sulfate (Morphine Inj (Syringe)*) 2 mg IV Q4H PRN PRN Reason: PAIN Ondansetron HCl (Zofran Inj*) 4 mg IV Q6H PRN PRN Reason: NAUSEA Last Admin: 09/01/17 16:01 Dose: 4 mg Oxycodone/Acetaminophen (Percocet 5/325 Tab*) 1 tab PO Q4H PRN PRN Reason: PAIN Last Admin: 09/03/17 16:11 Dose: 1 tab O: Vital Signs - 8 hr 09/04/17 09/04/17 09/04/17 04:05 07:27 07:33 Temperature 98.2 F 98.1 F Pulse Rate 84 75 Respiratory 16 16 14 Rate Blood Pressure 135/62 126/55 (mmHg) O2 Sat by Pulse 96 97 97 Oximetry 09/04/17 09:13 Temperature Pulse Rate 70 Respiratory 18 Rate Blood Pressure 138/70 (mmHg) O2 Sat by Pulse Oximetry Intake and Output Last 24 Hours 09/02/17 09/03/17 09/04/17 09/05/17 06:59 06:59 06:59 06:59 Intake Total 2604 2430 2374 Output Total 7304 560 4692 Balance 1392 1725 1169 Intake: IV Fluids 2477 1999 1014 LR 1487 1999 1014 NS (0.9%) 40 meq KCL 990 Oral 408 723 6551 Output: VIRAL #1 15 80 80 Urine 625 1125 Flores 1100 Estimated Blood Loss 100 Other: Estimated Void Large Date of Last Bowel 09/04/17 09/04/17 Movement # Bowel Movements 0 1 Estimated Stool Amount Small Small # Voids 1 Heart: reg Lungs: clear ant Abd: mildly distended/tympanitic; +BS; soft; min incisional tenderness; incision clean; no s/sx of infection Labs: Laboratory Tests 09/04/17 09/04/17 05:30 05:30 WBC 7.9 Hgb 10.9 L Potassium 3.1 L A: s/p open repair ventral hernia (for SBO), improving P: will adv diet and heplock IV; replete K; d/c planning (poss d/c 09/05); will d /w Dr. Mae
[2017-09-04] MEDS: Potassium Chlor TAB* 10 MEQ TAB.ER PO SCH ×2 (13:57→21:33)
--- NOTE | 2017-09-04 14:59 | PN ---
Subjective Date of Service: 09/04/17 Interval History: Pt sleeping in bed. Staff reports she is tolerating her diet well. Had BM yesterday and today. Family History: Unchanged from Admission Social History: Unchanged from Admission Past Medical History: Unchanged from Admission Objective Active Medications: Acetaminophen (Tylenol Tab*) 650 mg PO Q4H PRN PRN Reason: Pain Or Temperature >101 F Last Admin: 09/04/17 09:47 Dose: 650 mg Famotidine (Pepcid Iv*) 20 mg IV BID [facility] Last Admin: 09/04/17 09:48 Dose: 20 mg Heparin Sodium (Porcine) (Heparin Vial(*)) 5,000 units SUBCUT Q8HR [facility] Last Admin: 09/04/17 13:58 Dose: 5,000 units Hydromorphone HCl (Dilaudid Injic*) 0.5 mg IV Q1H PRN PRN Reason: Pain - severe Last Admin: 09/03/17 02:39 Dose: 0.5 mg Lorazepam (Ativan Inj*) 0.5 mg IV BEDTIME PRN PRN Reason: SLEEP Morphine Sulfate (Morphine Inj (Syringe)*) 2 mg IV Q4H PRN PRN Reason: PAIN Ondansetron HCl (Zofran Inj*) 4 mg IV Q6H PRN PRN Reason: NAUSEA Last Admin: 09/01/17 16:01 Dose: 4 mg Oxycodone/Acetaminophen (Percocet 5/325 Tab*) 1 tab PO Q4H PRN PRN Reason: PAIN Last Admin: 09/03/17 16:11 Dose: 1 tab Potassium Chloride (Klor Con Er Tab*) 10 meq PO BID [facility] Last Admin: 09/04/17 13:57 Dose: 10 meq Vital Signs 09/03/17 09/03/17 09/03/17 16:00 16:11 18:30 Temperature 97.9 F Pulse Rate 78 Respiratory 28 28 16 Rate Blood Pressure 146/84 (mmHg) O2 Sat by Pulse 93 Oximetry 09/03/17 09/03/17 09/03/17 19:26 20:37 20:40 Temperature 98.8 F Pulse Rate 79 Respiratory 16 16 16 Rate Blood Pressure 131/60 (mmHg) O2 Sat by Pulse 95 Oximetry 09/03/17 09/04/17 09/04/17 23:16 01:53 04:05 Temperature 97.5 F 98.2 F Pulse Rate 79 84 Respiratory 16 16 Rate Blood Pressure 120/46 135/62 (mmHg) O2 Sat by Pulse 96 96 96 Oximetry 09/04/17 09/04/17 09/04/17 07:27 07:33 09:13 Temperature 98.1 F Pulse Rate 75 70 Respiratory 16 14 18 Rate Blood Pressure 126/55 138/70 (mmHg) O2 Sat by Pulse 97 97 Oximetry 09/04/17 11:12 Temperature 97.6 F Pulse Rate 73 Respiratory 16 Rate Blood Pressure 141/62 (mmHg) O2 Sat by Pulse 97 Oximetry Oxygen Devices in Use Now: None Appearance: Sleeping in bed, head partly up. Looks comfortable. Result Diagrams: 09/04/17 05:30 09/04/17 05:30 Additional Lab and Data: Lab Results 08/30/17 08/30/17 Range/Units 17:20 17:20 WBC 7.9 (3.5-10.8) 10^3/ul RBC 5.11 (4.0-5.4) 10^6/ul Hgb 13.6 (12.0-16.0) g/dl Hct 41 (35-47) % MCV 80 (80-97) fL MCH 27 (27-31) pg MCHC 33 (31-36) g/dl RDW 17 H (10.5-15) % Plt Count 256 (150-450) 10^3/ul MPV 9 (7.4-10.4) um3 Neut % (Auto) 73.4 (38-83) % Lymph % (Auto) 17.8 L (25-47) % [place] % (Auto) 6.4 (1-9) % Eos % (Auto) 1.7 (0-6) % Baso % (Auto) 0.7 (0-2) % Absolute Neuts (auto) 5.8 (1.5-7.7) 10^3/ul Absolute Lymphs (auto) 1.4 (1.0-4.8) 10^3/ul Absolute Monos (auto) 0.5 (0-0.8) 10^3/ul Absolute Eos (auto) 0.1 (0-0.6) 10^3/ul Absolute Basos (auto) 0.1 (0-0.2) 10^3/ul Absolute Nucleated RBC 0.01 10^3/ul Nucleated RBC % 0.2 Sodium 134 (133-145) mmol/L Potassium 3.6 (3.5-5.0) mmol/L Chloride 100 L (101-111) mmol/L Carbon Dioxide 26 (22-32) mmol/L Anion Gap 8 (2-11) mmol/L BUN 8 (6-24) mg/dL Creatinine 0.71 (0.51-0.95) mg/dL Est GFR ( Amer) 100.6 (>60) Est GFR (Non-Af Amer) 78.2 (>60) BUN/Creatinine Ratio 11.3 (8-20) Glucose 118 H (70-100) mg/dL Calcium 9.0 (8.6-10.3) mg/dL Total Bilirubin 0.90 (0.2-1.0) mg/dL AST 16 (13-39) U/L ALT 21 (7-52) U/L Alkaline Phosphatase 73 (34-104) U/L Total Protein 6.5 (6.4-8.9) g/dL Albumin 3.9 (3.2-5.2) g/dL Globulin 2.6 (2-4) g/dL Albumin/Globulin Ratio 1.5 (1-3) Assess/Plan/Problems-Billing Assessment: Mrs. Christensen is an 87yo F with PMH of HTN, ovarian CA s/p resection, transferred from [facility] with c/o abdominal pain, N/V, found to have an episode of SBO. - Patient Problems (1) SBO (small bowel obstruction) Current Visit: Yes Status: Acute Code(s): K56.609 - UNSP INTESTNL OBST, UNSP TO PARTIAL VERSUS COMPLETE OBST SNOMED Code(s): 863590535 Comment: S/P exlap repair of incarcerated incisional hernia 09/01/17. Satisfactory p-op course. Advance diet as per surgical service. (2) HTN (hypertension) Current Visit: Yes Status: Acute Code(s): I10 - ESSENTIAL (PRIMARY) HYPERTENSION SNOMED Code(s): 66815172 Comment: Thiazide on hold. (3) Hypokalemia Current Visit: No Status: Acute Code(s): E87.6 - HYPOKALEMIA SNOMED Code(s ): 59893900 Comment: KCL 10 meq bid started 09/04/17. Status and Disposition: Inpatient.
[2017-09-05] MEDS: Heparin VIAL(*) 5000 UNITS/ML VIAL (FIVE THOUSAND) SUBCUT SCH ×3 (06:08→22:30)
--- NOTE | 2017-09-05 08:48 | PN ---
Progress Note - Progress Note Date of Service: 09/05/17 SOAP: Subjective: Patient seen and examined at bedside. Reports doing very well. Ambulatory with use of walker. Denies any pain, nausea or vomiting. Tolerating soft diet, moving her bowels. Objective: Awake and alert, sitting on her chair, waiting for breakfast, in NAD VSS, afebrile Lungs CTA bilat. Heart RRR, no murmurs Abdomen soft, NT, ND. Incision C/D/I. VIRAL drain with approx. 10cc serosanginous output. Ext. without edema I/O reviewed No labs today Assessment: An 87 y/o female, POD#4, s/p exploratory laparotomy with VIH repair, doing well. Plan: PT/OT eval Ambulate as tolerated Continue soft diet, will add boost with meals TID Had a conversation with both her daughters, Carlita and Fariha. They expressed their concerns about discharging patient to home today since she lives alone. I offered a social media intern consult to consider possible placement for short term rehab. They both refused and still wish for their mom to be discharge home, but not "too soon" as they quoted. Likely home by Friday at the most.
[2017-09-05] MEDS: Potassium Chlor TAB* 10 MEQ TAB.ER PO SCH ×2 (09:01→22:26)
[2017-09-05] MEDS: Famotidine IV* 10 MG/ML 2 ML (20 mg) IV SCH ×2 (09:01→22:26)
--- NOTE | 2017-09-05 17:37 | PN ---
Progress Note - Progress Note Date of Service: 09/05/17 SOAP: Subjective: She is doing well-tolerating a regular diet and moving her bowels although are loose as her ileus resolves She has no pain and ambulated around the unit this afternoon. Objective: Temp Pulse Resp BP Pulse Ox 98.0 F 59 16 142/59 97 09/05/17 15:30 09/05/17 15:30 09/05/17 15:30 09/05/17 15:30 09/05/17 16:00 PEX: Abdomen is soft and slightly distended. Bowel sounds are present. Incision is clean and dry. VIRAL with small amount of serous fluid in bulb. Assessment: POD# 4 s/p exlap with repair of incarcerated incisional hernia--doing well Plan: She is off IV fluids and is tolerating regular diet and needs no IV meds. She is moving around well and has no specialized hospital needs at this point. She is ready for discharge from a surgical standpoint and her VIRAL drain can be removed on discharge home. Both her daughters are reluctant to take her home- they live near her and are involved with her care-but they do not want her to go home too early and have problems. Will continue to keep here in hospital-hopefully she will be able to go home tomorrow with daughters with follow up in our surgical clinic at [facility].
[2017-09-06] MEDS: Heparin VIAL(*) 5000 UNITS/ML VIAL (FIVE THOUSAND) SUBCUT SCH ×3 (05:46→20:17)
--- NOTE | 2017-09-06 08:29 | PN ---
Progress Note - Progress Note Date of Service: 09/06/17 Note: Surgery Ms. Christensen says she feel fine; she is tolerating a diet, passing stools, ambulating with a walker, and she denies pain. Vital Signs 09/05/17 09/05/17 09/05/17 11:55 13:43 15:30 Temperature 98.3 F 98.0 F Pulse Rate 76 59 Respiratory 16 16 Rate Blood Pressure 128/56 142/59 (mmHg) O2 Sat by Pulse 97 97 97 Oximetry 09/05/17 09/05/17 09/05/17 16:00 19:25 19:30 Temperature 97.4 F Pulse Rate 88 Respiratory 18 18 Rate Blood Pressure 145/66 (mmHg) O2 Sat by Pulse 97 97 Oximetry 09/05/17 09/06/17 09/06/17 23:14 00:07 03:16 Temperature 98.2 F 97.9 F Pulse Rate 77 78 Respiratory 16 18 14 Rate Blood Pressure 130/46 123/49 (mmHg) O2 Sat by Pulse 98 97 Oximetry 09/06/17 09/06/17 07:12 08:01 Temperature 98.3 F Pulse Rate 74 Respiratory 14 16 Rate Blood Pressure 143/71 (mmHg) O2 Sat by Pulse 97 96 Oximetry Abd: protruberant, soft, non-tender, good BS. Incision: clean and dry, no signs infection Intake & Output 09/05/17 09/06/17 09/06/17 22:59 06:59 14:59 Intake Total 620 500 Output Total 550 350 Balance 70 150 Intake: Oral 620 500 Output: VIRAL #1 25 Urine 525 350 Other: # Bowel Movements 2 1 Estimated Stool Amount Medium Medium POD#5 s/p ex lap repair hernia; doing well. She has been planning to go home on her own; I suggested that for the first day or two she should have a family member stay with her if possible. She will discuss this with her daughters.
[2017-09-06] MEDS: Famotidine IV* 10 MG/ML 2 ML (20 mg) IV SCH ×2 (08:44→20:17)
[2017-09-06] MEDS: Potassium Chlor TAB* 10 MEQ TAB.ER PO SCH ×2 (08:44→20:17)
[2017-09-07] MEDS: CMCS:Melatonin (NF) 3 MG TAB PO PRN ×2 (00:02→20:30)
[2017-09-07] MEDS: Heparin VIAL(*) 5000 UNITS/ML VIAL (FIVE THOUSAND) SUBCUT SCH ×3 (05:26→20:29)
[2017-09-07] MEDS: Potassium Chlor TAB* 10 MEQ TAB.ER PO SCH ×2 (09:09→20:30)
[2017-09-07] MEDS: Famotidine IV* 10 MG/ML 2 ML (20 mg) IV SCH ×2 (09:10→20:29)
--- NOTE | 2017-09-07 10:32 | PN ---
Progress Note - Progress Note Date of Service: 09/07/17 Note: S/P laparotomy for SBO 2/2 ventral hernia. Feels well, no pain. Antonio po's, no N/V bd benign, non-tender, no infction, incis clean. VIRAL 35 ml/24hr>>>D/C'd Disch when safe plan at home, prob 09/08
[2017-09-08] MEDS: Heparin VIAL(*) 5000 UNITS/ML VIAL (FIVE THOUSAND) SUBCUT SCH (06:07)
[2017-09-08 07:44] VITALS: BP 131/83
--- NOTE | 2017-09-08 09:43 | PN ---
Progress Note - Progress Note Date of Service: 09/08/17 SOAP: Subjective: Reports doing very well, has no complaints. Tolerating diet, moving her bowels daily. Ambulatory using her walker, denies any weakness or SOB. Ready to go home today. Objective: Awake and alert, sitting on her chair, just finished her breakfast, comfortable and in NAD VSS, afebrile Lungs CTA bilat. Heart RRR, no murmurs Ext. without edema I/Os noted Assessment: An 87 y/o female, s/p VIH repair a week ago, doing very well. Plan: D/C IV site D/C to home later today All d/c plans discussed with patient and her daughter, F/U by end of this week for stable removal.
[2017-09-08] MEDS: Potassium Chlor TAB* 10 MEQ TAB.ER PO SCH (09:44)
[2017-09-08] MEDS: Famotidine IV* 10 MG/ML 2 ML (20 mg) IV SCH (09:50)
--- NOTE | 2017-09-09 01:49 | DS ---
DISCHARGE SUMMARY: DATE OF ADMISSION: 08/30/17 DATE OF DISCHARGE: 09/08/17 ADMITTING PHYSICIAN: Josef Quinn MD CONSULTING PHYSICIAN: Jean Marie Mae MD * (DICTATED BY EVANGELINA ZAVALA) ADMISSION DIAGNOSES: 1. Abdominal pain. 2. Small bowel obstruction. DISCHARGE DIAGNOSES: 1. Abdominal pain. 2. Small bowel obstruction. 3. Ventral incisional hernia with incarcerated bowel. PROCEDURES: Exploratory laparotomy with lysis of adhesion and primary repair of ventral incisional hernia on 09/01/17. HISTORY OF PRESENT ILLNESS: Ms. Christensen is a pleasant 87-year-old female who presented initially at [facility] with complaints of abdominal pain. The patient was found to have ventral hernia with small bowel obstruction for which she was transferred to [facility] and observed overnight. The patient noted that her hernia was eventually reduced and was discharged home on the following day. 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 The patient described it as a similar pain she experienced when she had her bowel incarcerated in her hernia. She came again to the emergency room and abdominal x-ray revealed small bowel obstruction for which this time, she was directly admitted to [facility] and maintained n.p.o. awaiting surgical evaluation. The patient noted that she has a past surgical history significant for cholecystectomy and ovarian cancer treated partially with surgery. On exam, she was noted to have ventral incisional hernia just left of lower midline that was unable to reduce. The patient initially was admitted under medical services, but eventually her care was transferred to surgical services later during her admission. HOSPITAL COURSE: The patient was admitted in anticipation for surgery. She denied any significant nausea or vomiting upon admission. So, an NG tube placement was postponed at this time. She was kept on sips of clear liquid and surgical consultation was obtained. Abdominal x-rays were performed again on the following day that revealed a persistent small bowel obstruction. Some improvement was noted on the following day; however, the patient continued to have no bowel movement and was afraid to advance her diet given her ongoing symptoms of recurrent SBO. We discussed with her proceeding with surgery given her recurrent symptoms and the known fact of her ventral hernia with intermittent bowel incarceration. We had a long discussion about surgery with both her daughters and discussed proceeding with surgery, for which the patient was taken to the operating room on 09/01/17. She underwent an exploratory laparotomy and was noted to have some intraabdominal adhesion that was lysed as well. Hernia defect was identified and it was primarily closed using suture. After surgery, the patient was transferred to the recovery room in a stable condition. She then returned back to the surgical floor where she was started on clear liquid diet that she tolerated well and gradually advanced to soft diet prior to her discharge. She was ambulatory, out of bed on the first day postoperatively and continued to improve on a daily basis. Her laboratory workup was obtained on a daily basis revealed stable hemoglobin and hematocrit that was slightly decreased towards the end of her admission due to hemodilution. Her electrolytes were also checked. The patient was noted to have hypokalemia that was corrected using IV runs and p.o. potassium supplement. She continued to improve and was ambulatory and gaining strength day after day. On the discharge morning, she was in a stable condition tolerating regular diet and ambulatory out of bed. Her saima will need to stay for few extra days, so we will plan to see her back in the office by the end of this week for a followup and staple removal. The patient was also ambulatory using assistance from a walker that was ordered and we will also provide pain medication to take as needed. All the discharge instructions were provided to her and we will plan to see her later this week for a followup. DISCHARGE MEDICATIONS: Include: 1. Acetaminophen 650 mg p.o. q.4 hours p.r.n. for pain or fever. 2. Calcium 1200 mg p.o. daily. 3. Vitamin D 1000 units p.o. daily. 4. Hydrochlorothiazide 25 mg p.o. daily. 5. Percocet 5/325 one p.o. q.4 hours as needed for pain. PROBLEM LIST: 1. Abdominal pain. 2. Nausea and vomiting. 3. Hypokalemia. 4. Incarcerated ventral incisional hernia, status post exploratory laparotomy with lysis of adhesion and primary closure of ventral incisional hernia on 09/01. EVANGELINA ZAVALA [id number]/[facility] #: [id number] TRAY
== END 2017-09-08 12:40 | disposition home or self-care (01) | DRG 336 ==
LOC: ED 15:09 → OBSVTOIN 19:58 → SSU 19:58 → INTOOBSV 19:58
PROVIDERS: ADMIT Hospitalist; ATTEND Surgery
PROC: 0DNU0ZZ Release Omentum, Open Approach (ICD-10-PCS; 2017-09-01)
PROC: 0WQF0ZZ Repair Abdominal Wall, Open Approach (ICD-10-PCS; principal; 2017-09-01 11:00)
DX: K43.0 Incisional hernia with obstruction, without gangrene (principal); K56.7 Ileus, unspecified; K56.51 Intestinal adhesions [bands], with partial obstruction; K91.89 Other postprocedural complications and disorders of digestive system; E87.6 Hypokalemia; K42.9 Umbilical hernia without obstruction or gangrene; I10 Essential (primary) hypertension; Z85.43 Personal history of malignant neoplasm of ovary; Z79.899 Other long term (current) drug therapy
CPT/HCPCS: 36415; 74000; 74020; 80048; 80053; 82565; 84520; 85014; 85018; 85025; 85610; 85730; 88302; 94760; A9270-GY; J0330; J0694; J1100; J1170; J1644; J2405; J2704; J3010

== ENCOUNTER 2019-10-30 09:00 | Inpatient (IN) | payer MEDICARE ==
--- NOTE | 2019-10-30 21:00 | ADMNOTE ---
Subjective Interval History: 89 yo F presented as a transfer from an OSH to be evaluated [facility] cardiology. She initially was brought in there by grandson after being found down in her home for possibly 12+ hrs. Pt said she had a mechanical fall, her leg gave out and she fell and could not get back up. She uses either a walker or cane to ambulate because she has problems with her left knee. At OSH, pt found to have mild elevation in CK, troponins were 0.03. EKG showed a LBBB, but no prior EKG for comparison so the pt was transferred for further evaluation. She had scans of her back which showed chronic findings. She arrived at [facility] in stable condition. Very pleasant elderly woman who lives alone. She said she has no hx of heart disease. 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 No complaints at this time from her. Family History: Findings - htn Social History: Findings - lives alone, does not drink, does not smoke Past Medical History: Findings - HTN, hx of SBO Review of Systems - Review of Systems Constitutional Symptoms: Negative: Weight Gain, Weight Loss, Weakness, Fatigue, Fever, Night Sweats, Unexplained Falls, Other Dermatology: Negative: Normal, Rash, Skin Lesions, Cancer, Skin Lumps, Other HEENT: Negative: Normal, Change in Hearing, Vertigo, Dental Problems, Tinnitus, Sinus Problem, Other Eyes: Negative: Normal, Change in Vision, Double Vision, Eye Pain, Glaucoma, Cataract, Contacts or Glasses, Other Thyroid: Negative: Normal, Goiter, Thyroid Nodule, Cold Intolerance, Heat Intolerance , Sweatiness, Tremor, Frequent Defecation, Constipation, Palpitations, Primary Hypothyroidism, Primary Hyperthyroidism, Weight Loss, Weight Gain, Change in Skin/Hair, Change in Menstruation, Radiation Exposure, Other Pulmonary: Negative: Normal, Cough, Sputum, Hemoptysis, Wheezing, Respiratory Distress, Shortness of Breath, COPD, Asthma, Exercise Intolerance, Home Oxygen, Other Cardiology: Negative: Normal, Chest Pain, Shortness of Breath, Palpitations, Swelling of Ankles, Peripheral Vascular Dis, Edema, Faintness, Syncope, Claudication, Proximal NocturnalDyspnea, Orthopnoea, Other Gastroenterology: Negative: Normal, Abdominal Pain, Nausea, Vomiting, Anorexia, Indigestion, Difficulty Swallowing, Heartburn, Constipation, Diarrhea, Blood in Stools, Change in Bowel Habits, Haematemesis, Melena, Other Genitourinay - Female: Negative: Menses Normal, Vaginal Discharge, Menopause, Dysmenorrhea, Other Musculoskeletal: Negative: Joint Pain, Joint Stiffness, Arthritis, Osteoporosis, Low Back Pain , Sciatica, Joint Deformities, Kyphoscoliosis, Other Endocrinology: Negative: Normal, Thyroid Problems, Adrenal Problems, Gonadal Problems, Family Hx Endocrine Disorders, Obesity, Diabetes Mellitus, Hyperglycemia, Hx Hypoglycemia, Diabetic Foot Ulcers, Calluses, Hirsutism, Menstrual Abnormalities , Polydipsia, Polyuria, Gonadal Problems, Gynecomastia, Pituitary disease, Other Objective Active Medications: Ambulatory Orders Hydrochlorothiazide TAB* [Hydrodiuril TAB*] 25 mg PO DAILY 08/28/17 Oxygen Devices in Use Now: Nasal Cannula Appearance: pleasant, NID Ears/Nose/Mouth/Throat: - - dry mucous membrane Neck: NL Appearance and Movements; NL JVP, Trachea Midline Respiratory: Symmetrical Chest Expansion and Respiratory Effort, Clear to Auscultation, Clear to Percussion Cardiovascular: NL Sounds; No Murmurs; No JVD, No Edema, - - grade 2 murmur Abdominal: NL Sounds; No Tenderness; No Distention Neurological: Alert and Oriented x 3, NL Sensation, NL Muscle Strength and Tone Result Diagrams: 10/30/19 21:28 10/30/19 21:28 Assess/Plan/Problems-Billing Assessment: - Patient Problems (1) Accident due to mechanical fall without injury Current Visit: Yes Status: Acute Code(s): W19.XXXA - UNSPECIFIED FALL, INITIAL ENCOUNTER SNOMED Code(s): 26673379409731 Comment: had a mechanical fall at home, her left leg gave out. Uses a walker at home to ambulate. She was down for 12-24 hours. CKs slightly elevated. CT scan of spine with no acute findings. Pt with no complaints at this time. PT/OT CK (2) Elevated troponin Current Visit: Yes Status: Acute Code(s): R79.89 - OTHER SPECIFIED ABNORMAL FINDINGS OF BLOOD CHEMISTRY SNOMED Code(s): 808847694 Comment: slight bump in troponin. Likely demand after being down for so many hours trend, TTE (3) HTN (hypertension) Current Visit: No Status: Acute Code(s): I10 - ESSENTIAL (PRIMARY) HYPERTENSION SNOMED Code(s): 23566667 Comment: Thiazide (4) DVT prophylaxis Current Visit: No Status: Acute Code(s): JTA6764 - SNOMED Code(s): 988886707 Comment: - SQ heparin. (5) Full code status Current Visit: No Status: Acute Code(s): Z78.9 - OTHER SPECIFIED HEALTH STATUS SNOMED Code(s): 349536487
[2019-10-30 21:36] LABS: Hematocrit 40 % (35-47); Hemoglobin 13.6 g/dL (12.0-16.0); Mean Corpuscular HGB Conc 34 g/dL (31-36); Mean Corpuscular Hemoglobin 27 pg (27-31); Mean Corpuscular Volume 81 fL (80-97); Mean Platelet Volume 8.7 fL (7.4-10.4); Platelet Count 210 10^3/uL (150-450); Red Blood Count 4.99 10^6 /uL (3.70-4.87); Red Cell Distribution Width 17 % (10-15); White Blood Count 10.7 10^3/uL (3.5-10.8)
[2019-10-30 21:49] LABS: Albumin 3.5 g/dL (3.2-5.2); Anion Gap 9 mmol/L (2-11); CO2 Carbon Dioxide 26 mmol/L (22-32); Calcium 8.8 mg/dL (8.6-10.3); Chloride 105 mmol/L (101-111); Magnesium 1.9 mg/dL (1.9-2.7); Potassium 3.5 mmol/L (3.5-5.0); Sodium 140 mmol/L (135-145)
[2019-10-30] MEDS: Heparin VIAL(*) 5000 UNITS/ML VIAL (FIVE THOUSAND) SUBCUT SCH (21:52)
[2019-10-30] MEDS: Acetaminophen TAB* 325 MG PO PRN (21:52)
[2019-10-30 21:55] LABS: ALT 16 U/L (7-52); AST 31 U/L (13-39); Albumin/Globulin Ratio 1.3 (1-3); Alkaline Phosphatase 87 U/L (34-104); Blood Urea Nitrogen 13 mg/dL (6-24); EGFR African American 104.3 (>60); EGFR Non-African American 86.2 (>60); Globulin 2.8 g/dL (2-4); Glucose 130 mg/dL (70-100); Total Protein 6.3 g/dL (6.4-8.9)
[2019-10-30 22:08] LABS: Troponin I 0.03 ng/mL (<0.03)
[2019-10-30 22:09] LABS: CKMB ng/mL 12.7 ng/mL (0.6-6.3)
[2019-10-30 22:22] LABS: TSH (Thyroid Stimulating Horm) 1.97 mcIU/mL (0.34-5.60)
[2019-10-30 23:59] LABS: Troponin I 0.04 ng/mL (<0.03)
[2019-10-31] MEDS: Heparin VIAL(*) 5000 UNITS/ML VIAL (FIVE THOUSAND) SUBCUT SCH ×3 (05:48→21:15)
[2019-10-31] MEDS: Acetaminophen TAB* 325 MG PO PRN (08:54)
[2019-10-31] MEDS ORDERED: Hydrochlorothiazide TAB* 25 MG PO SCH (09:00)
[2019-10-31 09:30] LABS: Anion Gap 9 mmol/L (2-11); BUN/Creatinine Ratio 20.2 (8-20); Blood Urea Nitrogen 17 mg/dL (6-24); CO2 Carbon Dioxide 28 mmol/L (22-32); Chloride 103 mmol/L (101-111); Creatine Kinase 543 U/L (10-223); EGFR African American 77.6 (>60); EGFR Non-African American 64.1 (>60); Glucose 111 mg/dL (70-100); Potassium 3.5 mmol/L (3.5-5.0); Sodium 140 mmol/L (135-145)
[2019-10-31 09:34] LABS: Troponin I 0.03 ng/mL (<0.03)
[2019-10-31] MEDS ORDERED: NS 0.9% 1000 ML** 1,000 ML IV ONE (10:29)
[2019-10-31] MEDS ORDERED: NS 0.9% 1000 ML** 1,000 ML IV SCH (10:30)
--- NOTE | 2019-10-31 10:38 | PN ---
Subjective Date of Service: 10/31/19 Interval History: Afraid to move due to pain and spasms. Denies numbness or tingling in lower extremities or changes in bowel/bladder function. Denies chest pain, palpitations. Skin appears generally dry and flaky, mucous membranes and lips dry. Family History: Findings - htn Social History: Findings - lives alone, does not drink, does not smoke Past Medical History: Findings - HTN, hx of SBO Objective Active Medications: Acetaminophen (Tylenol Tab*) 650 mg PO Q4H PRN PRN Reason: Pain Or Temperature >101 F Last Admin: 10/31/19 08:54 Dose: 650 mg Cyclobenzaprine HCl (Flexeril Tab*) 5 mg PO TID PRN PRN Reason: SPASMS - MUSCLE Heparin Sodium (Porcine) (Heparin Vial(*)) 5,000 units SUBCUT Q8HR [facility] Last Admin: 10/31/19 05:48 Dose: 5,000 units Hydrochlorothiazide (Hydrodiuril Tab*) 25 mg PO DAILY [facility] Last Admin: 10/31/19 08:54 Dose: 25 mg Sodium Chloride (Ns 0.9% 1000 Ml) 1,000 mls @ 100 mls/hr IV PER RATE MARIE Stop: 10/31/19 20:29 Sodium Chloride (Ns 0.9% 1000 Ml) 1,000 mls @ 500 mls/hr IV .PER RATE ONE Stop: 10/31/19 12:28 Tramadol HCl (Ultram*) 50 mg PO Q6H PRN PRN Reason: PAIN - MODERATE Vital Signs - 8 hr 10/31/19 10/31/19 10/31/19 03:21 07:15 07:38 Temperature 97.5 F 97.8 F Pulse Rate 77 79 Respiratory 16 18 18 Rate Blood Pressure 107/53 127/67 (mmHg) O2 Sat by Pulse 98 97 Oximetry Oxygen Devices in Use Now: None Appearance: Generalized dry, flaky skin. Appears to have poor nutritional status. Seen resting in bed on side, in no distress until she moves, then tenses and grimaces with pain. Eyes: No Scleral Icterus, PERRLA Ears/Nose/Mouth/Throat: Clear Oropharnyx, - - Lips chapped and mucous membranes dry. Neck: NL Appearance and Movements; NL JVP, Trachea Midline Respiratory: Symmetrical Chest Expansion and Respiratory Effort, Clear to Auscultation, - - Diminished trhoughout bilaterally on room air. Cardiovascular: RRR, No Edema, - - S1S2 heart rate regular. Stenotic systolic murmur auscultated. Abdominal: NL Sounds; No Tenderness; No Distention Lymphatic: No Cervical Adenopathy Extremities: No Edema, No Clubbing, Cyanosis, - - Elicited pain with palpation on the right side around the T7-T8 level. Skin: No Rash or Ulcers, No Nodules or Sclerosis, - - Generally flaky and dry. Neurological: Alert and Oriented x 3 Lines/Tubes/Other Access: Clean, Dry and Intact Peripheral IV Result Diagrams: 10/30/19 21:28 10/31/19 09:06 Assess/Plan/Problems-Billing Assessment: This is an 89 year old female with a past medical history significant for ovarian cancer and HTN who was admitted on 10/30/19 s/p mechanical fall, suspected to have laid on floor for over 12 hours before discovered. - Patient Problems (1) Fall Current Visit: Yes Status: Acute Comment: -Stated that she fell after attempting to do physical therapy exercises given to her after last hospitalization. Was on the floor for 12+ hours without moving due to pain. -No evidence for rhabdomyelisis, though CK slightly elevated. Because patient appears dry, will give NS bolus over two hours and follow with normal saline @ 100ml for one bag. Trending CK-MB. -Cyclobenzaprine, tramadol and tylenol for pain. -Elicited pain with palpation at thoracic level. No pain at cervical vertebral level. Ordered Ct of lumbar spine which showed new compression fracture of L2. CT of thoracic spine done in [place] showed old T11 and L1 fractures present since 2014. Consult neurosurgery in AM. Bedrest for now. Will likely need PT/OT consult with possible JIM placement. (2) Elevated troponin Current Visit: Yes Status: Acute Code(s): R79.89 - OTHER SPECIFIED ABNORMAL FINDINGS OF BLOOD CHEMISTRY SNOMED Code(s): 308165998 Comment: -Troponin elevated to 0.04, trended down to 0.03. Likely demand after being down for so many hours. -Gave 1L NS bolus over 2 hours with an additional liter of normal saline @ 100ml /hr. -Ordered TTE -On telemetry. (3) HTN (hypertension) Current Visit: No Status: Acute Code(s): I10 - ESSENTIAL (PRIMARY) HYPERTENSION SNOMED Code(s): 92425517 Comment: -Hold hydrochlorothiazide for now as patient needs rehydrations. Bp within acceptable limits. (4) DVT prophylaxis Current Visit: No Status: Acute Code(s): LCU4099 - SNOMED Code(s): 437360906 Comment: - SQ heparin. (5) Full code status Current Visit: No Status: Acute Code(s): Z78.9 - OTHER SPECIFIED HEALTH STATUS SNOMED Code(s): 678902030 Status and Disposition: Condition: Guarded Disposition: Admit inpatient to . Attending: Estella Thrasher
[2019-10-31 10:44] LABS: CKMB ng/mL 5.4 ng/mL (0.6-6.3)
[2019-10-31] MEDS: traMADol TAB* 50 MG PO PRN ×2 (11:22→17:56)
--- NOTE | 2019-10-31 14:40 | ECHO ---
*[facility]* [place] [address] Fax #: [phone] Transthoracic Echocardiogram Patient: Ruth Christensen : 1930 Study Date: 10/31/2019 Age: 89 Gender: F HR: 82 bpm Height: 64 in /162.6 cm BSA: 1.71 m^2 Weight: 145.7 lb /66.2 kg BMI: 25.1 kg/m^2 *Manager Of Planning: * Jacque Malone [facility] *Referring Physician: * Avani Betancourt *Reading Physician: * Rona Wheatley MD Indications: Aortic Valve Disorder. History: Risk factors: Hypertension. Conclusions Summary: - Left ventricle: The cavity size is moderately reduced. Wall thickness is moderately increased. There is focal basal hypertrophy. Systolic function is vigorous. The estimated ejection fraction is 60-65%. There is no evidence of left ventricular outflow tract obstruction at rest based on serial Doppler, patient at risk for dynamic obstruction. - Right ventricle: Systolic function is normal. - Mitral valve: The Mitral valve annulus appears calcified. The leaflets are mildly calcified. There is trace regurgitation. - Aortic valve: The findings are consistent with mild to moderate stenosis. The mean systolic gradient is 19.0 mm Hg. The LVOT to aortic valve VTI ratio is 0.4. The valve area by the velocity-time integral method is 1.20 cm^2. The valve area by the peak velocity method is 1.20 cm^2. - Tricuspid valve: There is trace regurgitation. - Pulmonary arteries: Systolic pressure can not be accurately estimated. - No prior echocardiogram to compare available. Study data: Transthoracic echocardiogram. Procedure: Transthoracic echocardiography was performed. Image quality was fair. Complete 2D, spectral Doppler, and color flow Doppler. Location: Bedside. Patient status: Inpatient. Patient room number: 450 02. Rhythm: Normal sinus rhythm. Findings Left ventricle: The cavity size is moderately reduced. Wall thickness is moderately increased. There is focal basal hypertrophy. Systolic function is vigorous. The estimated ejection fraction is 60-65%. There is no evidence of left ventricular outflow tract obstruction at rest based on serial Doppler, patient at risk for dynamic obstruction. Wall motion is normal; there are no regional wall motion abnormalities. There is no consistent Doppler evidence of clinically significant diastolic dysfunction. Right ventricle: The cavity size is normal. Systolic function is normal. Left atrium: The atrium is mildly dilated. Right atrium: The atrium is normal in size. Mitral valve: The Mitral valve annulus appears calcified. The leaflets are mildly calcified. There is no evidence of stenosis. There is trace regurgitation. Aortic valve: The valve is trileaflet. The leaflets are moderately calcified. Valve mobility is restricted. The findings are consistent with mild to moderate stenosis. There is trace regurgitation. Tricuspid valve: The leaflets are normal thickness. There is no evidence of stenosis. There is trace regurgitation. Pulmonic valve: Not well visualized. There is trace regurgitation. Aorta: The aortic root appears normal. The aortic arch appears normal. Pericardium: There is no significant pericardial effusion. Pulmonary arteries: Systolic pressure can not be accurately estimated. Systemic veins: Inferior vena cava: The vessel is normal in size. There is (< 50%) respiratory change in the IVC dimension. Measurements Left ventricle Value Ref Aortic valve Value Ref SHAISTA, LAX (L) 2.1 cm 3.8 - 5.2 Omega diam, ED 1.8 cm ---- ESD, LAX (L) 1.4 cm 2.2 - 3.5 Omega diam/bsa, ED 1.1 cm/m^2 ---- FS, LAX 33 % 27 - 45 Peak v, S 2.8 m/sec ---- PW, ED, LAX (H) 1.4 cm 0.6 - 0.9 VTI, S 60.0 cm ---- Mid-wall FS 4 % Mean grad, S 19.0 mm Hg ---- PW, ED (H) 1.4 cm 0.6 - 0.9 Peak grad, S 31.0 mm Hg ---- E', lat omega, TDI (L) 5.2 cm/sec >=10.0 LVOT/AV, VTI ratio 0.4 - --- E/e', lat omega, 12 QUEENIE, VTI 1.20 cm^2 ---- TDI QUEENIE, Vmax 1.20 cm^2 ---- E', med omega, TDI (L) 5.5 cm/sec >=7.0 E/e', med omega, 11 Mitral valve Value Ref TDI Peak E 0.63 m/sec ---- E', avg, TDI 5.4 cm/sec Peak A 1.05 m/sec ---- E/e', avg, TDI 12 <=14 Decel time 156 ms - --- PHT 147 ms ---- LVOT Value Ref Mean grad, D 2.0 mm Hg ---- Diam, S 2.00 cm Peak grad, D 5.0 mm Hg ---- Area 3.1 cm^2 Peak E/A ratio 0.6 ---- Peak christianne, S 1.1 m/sec MVA, PHT 1.5 cm^2 ---- VTI, S 24.0 cm Peak grad, S 5 mm Hg Pulmonic valve Value Ref Mean grad, S 3 mm Hg Peak v, S 0.71 m/sec ---- SV 75 ml Peak grad, S 2.0 mm Hg ---- Ventricular septum Value Ref Aortic root Value Ref IVS, ED (H) 1.8 cm 0.6 - 0.9 Root diam 3.0 cm <3.9 Root max diam, ED 3.0 cm <3.9 Right ventricle Value Ref SHAISTA minor ax, A4C 2.8 cm 1.9 - 3.5 Aortic arch Value Ref mid Arch diam 2.2 cm ---- Left atrium Value Ref Decending aorta Value Ref AP dim, ES 2.90 cm 2.70 - Cassi peak christianne 0.57 m/sec ---- 3.80 ML dim, A4C 3.4 cm Inferior vena cava Value Ref SI dim, A4C 5.9 cm Diam 1.6 cm ---- Vol/bsa, ES, A/L (H) 35 ml/m^2 16 - 34 Right atrium Value Ref SI dim, ES 5.2 cm 3.4 - 5.3 ML dim, ES, A4C 3.3 cm 2.6 - 4.4 Estimated RAP 8 mm Hg Legend: (L) and (H) jacque values outside specified reference range. Prepared and electronically signed by Rona Wheatley MD 10/31/2019 14:40
[2019-10-31] MEDS: Cyclobenzaprine TAB* 10 MG PO PRN (17:55)
[2019-10-31] MEDS ORDERED: Ondansetron INJ* 2 MG/ML VIAL IV PRN (18:00)
[2019-11-01] MEDS: Heparin VIAL(*) 5000 UNITS/ML VIAL (FIVE THOUSAND) SUBCUT SCH ×3 (06:04→21:11)
[2019-11-01] MEDS: traMADol TAB* 50 MG PO PRN ×2 (11:03→21:12)
[2019-11-01] MEDS: Cyclobenzaprine TAB* 10 MG PO PRN ×2 (12:32→21:13)
--- NOTE | 2019-11-01 16:05 | PN ---
Subjective Date of Service: 11/01/19 Interval History: Reports continuing to have spasms across her mid-back, worse with movement. States she otherwise feels ok. Denies chest pain, palpitations, abdominal pain, nausea, vomiting, issues moving bowel or bladder. Family History: Findings - htn Social History: Findings - lives alone, does not drink, does not smoke Past Medical History: Findings - HTN, hx of SBO Objective Active Medications: Acetaminophen (Tylenol Tab*) 650 mg PO Q4H PRN PRN Reason: Pain Or Temperature >101 F Last Admin: 10/31/19 08:54 Dose: 650 mg Cyclobenzaprine HCl (Flexeril Tab*) 5 mg PO TID PRN PRN Reason: SPASMS - MUSCLE Last Admin: 11/01/19 12:32 Dose: 5 mg Heparin Sodium (Porcine) (Heparin Vial(*)) 5,000 units SUBCUT Q8HR MARIE Last Admin: 11/01/19 15:11 Dose: 5,000 units Influenza Virus Vaccine (Fluarix Quad [id number] Syr) 0.5 ml IM .ONCE ONE Stop: 11/02/19 09:01 Ondansetron HCl (Zofran Inj*) 4 mg IV Q6H PRN PRN Reason: NAUSEA Last Admin: 10/31/19 18:06 Dose: 4 mg Pneumococcal Polyvalent Vaccine (Pneumococcal Vac 23-Polyvalent*) 0.5 ml IM .ONCE ONE Stop: 11/02/19 09:01 Tramadol HCl (Ultram*) 50 mg PO Q6H PRN PRN Reason: PAIN - MODERATE Last Admin: 11/01/19 11:03 Dose: 50 mg Vital Signs - 8 hr 11/01/19 11/01/19 11/01/19 08:12 11:03 11:32 Temperature 98.2 F 97.4 F Pulse Rate 71 72 Respiratory 18 16 16 Rate Blood Pressure 132/62 125/57 (mmHg) O2 Sat by Pulse 98 98 Oximetry 11/01/19 11/01/19 11/01/19 12:32 13:03 15:10 Temperature Pulse Rate Respiratory 16 16 16 Rate Blood Pressure (mmHg) O2 Sat by Pulse Oximetry 11/01/19 15:11 Temperature 97.7 F Pulse Rate 68 Respiratory 16 Rate Blood Pressure 115/57 (mmHg) O2 Sat by Pulse 98 Oximetry Oxygen Devices in Use Now: Nasal Cannula Appearance: This is a well developed older woman seen resting in bed, no acute distress. Eyes: No Scleral Icterus, PERRLA Ears/Nose/Mouth/Throat: NL Teeth, Lips, Gums, Clear Oropharnyx, Mucous Membranes Moist Neck: NL Appearance and Movements; NL JVP, Trachea Midline Respiratory: Symmetrical Chest Expansion and Respiratory Effort, Clear to Auscultation, Clear to Percussion Cardiovascular: RRR, No Edema, - - Holosystolic murmur auscultated. Abdominal: NL Sounds; No Tenderness; No Distention Lymphatic: No Cervical Adenopathy Extremities: No Edema, No Clubbing, Cyanosis Skin: No Rash or Ulcers, No Nodules or Sclerosis Neurological: Alert and Oriented x 3 Lines/Tubes/Other Access: Clean, Dry and Intact Peripheral IV Result Diagrams: 10/30/19 21:28 10/31/19 09:06 Assess/Plan/Problems-Billing Assessment: This is an 89 year old female with a past medical history significant for ovarian cancer and HTN who was admitted on 10/30/19 s/p mechanical fall, suspected to have laid on floor for over 12 hours before discovered. - Patient Problems (1) Fall Current Visit: Yes Status: Acute Comment: -Stated that she fell after attempting to do physical therapy exercises given to her after last hospitalization. Was on the floor for 12+ hours without moving due to pain. -No evidence for rhabdomyelisis, though CK slightly elevated. Because patient appears dry, will give NS bolus over two hours and follow with normal saline @ 100ml for one bag. Trending CK-MB. -Cyclobenzaprine, tramadol and tylenol for pain. -Elicited pain with palpation at thoracic level. No pain at cervical vertebral level. Ordered Ct of lumbar spine which showed new compression fracture of L2. CT of thoracic spine done in [place] showed old T11 and L1 fractures present since 2015. Bedrest for now. Will likely need PT/OT consult with possible JIM placement. -Spoke with Dr. Resendiz who recommended TLSO brace and take upright lumbar xray with once brace is in place. Keep bedrest until brace arrives. (2) Elevated troponin Current Visit: Yes Status: Acute Code(s): R79.89 - OTHER SPECIFIED ABNORMAL FINDINGS OF BLOOD CHEMISTRY SNOMED Code(s): 521481236 Comment: -Troponin elevated to 0.04, trended down to 0.03. Likely demand after being down for so many hours. -TTE negative for any remarkable findings. -On telemetry. (3) HTN (hypertension) Current Visit: No Status: Acute Code(s): I10 - ESSENTIAL (PRIMARY) HYPERTENSION SNOMED Code(s): 00141394 Comment: -Hold hydrochlorothiazide for now as patient needs rehydrations. Bp within acceptable limits. (4) DVT prophylaxis Current Visit: No Status: Acute Code(s): ZIN8044 - SNOMED Code(s): 436739986 Comment: - SQ heparin. (5) Full code status Current Visit: No Status: Acute Code(s): Z78.9 - OTHER SPECIFIED HEALTH STATUS SNOMED Code(s): 026118227 Status and Disposition: Condition: Guarded Disposition: Admit inpatient to . Attending: Kota Norton
[2019-11-02 06:07] LABS: ABS Eosinophils 0.2 10^3/ul (0-0.6); ABS Lymphocytes 1.2 10^3/ul (1.0-4.8); ABS Monocytes 0.4 10^3/ul (0-0.8); ABS Neutrophils 3.2 10^3/ul (1.5-7.7); Eosinophil % 3.2 %; Hematocrit 35 % (35-47); Hemoglobin 11.8 g/dL (12.0-16.0); Lymphocyte % 24.2 %; Mean Corpuscular HGB Conc 34 g/dL (31-36); Mean Corpuscular Hemoglobin 27 pg (27-31); Mean Corpuscular Volume 80 fL (80-97); Mean Platelet Volume 8.2 fL (7.4-10.4); Platelet Count 218 10^3/uL (150-450); Red Blood Count 4.35 10^6 /uL (3.70-4.87); Red Cell Distribution Width 16 % (10-15)
[2019-11-02] MEDS: Heparin VIAL(*) 5000 UNITS/ML VIAL (FIVE THOUSAND) SUBCUT SCH ×3 (06:21→20:53)
[2019-11-02 06:34] LABS: BUN/Creatinine Ratio 17.6 (8-20); Calcium 8.5 mg/dL (8.6-10.3); EGFR Non-African American 81.8 (>60); Potassium 3.3 mmol/L (3.5-5.0)
[2019-11-02] MEDS: traMADol TAB* 50 MG PO PRN ×2 (08:31→16:06)
[2019-11-02 08:54] LABS: Magnesium 1.8 mg/dL (1.9-2.7)
[2019-11-02] MEDS ORDERED: Influenza VAC *QUAD* 2019-20* 0.5 ML SYRINGE IM ONE (09:00)
[2019-11-02] MEDS ORDERED: Pneumococcal *Vac Polyvalent 0.5 ML VIAL IM ONE (09:00)
--- NOTE | 2019-11-02 17:17 | PN ---
Subjective Date of Service: 11/02/19 Interval History: Still reporting spasms to back with movement. Pain has not diminished since admission. Denies numbness or tingling to bilateral lower extremities, able to dorsi/plantar flex. TLSO brace did not arrive until later this evening. Orders placed for upright xray per recommendation of Neurosurgery. Encouraged patient to get out of bed to start strength building. Family History: Findings - htn Social History: Findings - lives alone, does not drink, does not smoke Past Medical History: Findings - HTN, hx of SBO Objective Active Medications: Acetaminophen (Tylenol Tab*) 650 mg PO Q4H PRN PRN Reason: Pain Or Temperature >101 F Last Admin: 10/31/19 08:54 Dose: 650 mg Cyclobenzaprine HCl (Flexeril Tab*) 5 mg PO TID PRN PRN Reason: SPASMS - MUSCLE Last Admin: 11/01/19 21:13 Dose: 5 mg Heparin Sodium (Porcine) (Heparin Vial(*)) 5,000 units SUBCUT Q8HR [facility] Last Admin: 11/02/19 12:56 Dose: 5,000 units Ondansetron HCl (Zofran Inj*) 4 mg IV Q6H PRN PRN Reason: NAUSEA Last Admin: 10/31/19 18:06 Dose: 4 mg Tramadol HCl (Ultram*) 50 mg PO Q6H PRN PRN Reason: PAIN - MODERATE Last Admin: 11/02/19 16:06 Dose: 50 mg Vital Signs - 8 hr 11/02/19 11/02/19 11/02/19 10:02 11:15 15:15 Temperature 97.1 F 97.9 F Pulse Rate 73 81 Respiratory 20 16 18 Rate Blood Pressure 114/66 121/65 (mmHg) O2 Sat by Pulse 98 96 Oximetry 11/02/19 16:06 Temperature Pulse Rate Respiratory 20 Rate Blood Pressure (mmHg) O2 Sat by Pulse Oximetry Oxygen Devices in Use Now: Nasal Cannula Appearance: This is a well developed older woman in no acute distress. Eyes: No Scleral Icterus, PERRLA Ears/Nose/Mouth/Throat: NL Teeth, Lips, Gums, Clear Oropharnyx, Mucous Membranes Moist Neck: NL Appearance and Movements; NL JVP, Trachea Midline Respiratory: Symmetrical Chest Expansion and Respiratory Effort, Clear to Auscultation Cardiovascular: NL Sounds; No Murmurs; No JVD, RRR, No Edema Abdominal: NL Sounds; No Tenderness; No Distention Lymphatic: No Cervical Adenopathy Extremities: No Edema, No Clubbing, Cyanosis Skin: No Rash or Ulcers, No Nodules or Sclerosis Neurological: Alert and Oriented x 3 Lines/Tubes/Other Access: Clean, Dry and Intact Peripheral IV Result Diagrams: 11/02/19 05:50 11/02/19 05:50 Assess/Plan/Problems-Billing Assessment: This is an 89 year old female with a past medical history significant for ovarian cancer and HTN who was admitted on 10/30/19 s/p mechanical fall, suspected to have laid on floor for over 12 hours before discovered. - Patient Problems (1) Fall Current Visit: Yes Status: Acute Comment: -Stated that she fell after attempting to do physical therapy exercises given to her after last hospitalization. Was on the floor for 12+ hours without moving due to pain. -No evidence for rhabdomyelisis. -Cyclobenzaprine, tramadol and tylenol for pain. -Elicited pain with palpation at thoracic level. No pain at cervical vertebral level. Ordered Ct of lumbar spine which showed new compression fracture of L2. CT of thoracic spine done in [place] showed old T11 and L1 fractures present since 2015. Bedrest for now. Will likely need PT/OT consult with possible JIM placement. -Spoke with Dr. Resendiz who recommended TLSO brace and take upright lumbar xray with once brace is in place. Keep bedrest until brace arrives. (2) Elevated troponin Current Visit: Yes Status: Acute Code(s): R79.89 - OTHER SPECIFIED ABNORMAL FINDINGS OF BLOOD CHEMISTRY SNOMED Code(s): 851385500 Comment: -Troponin elevated to 0.04, trended down to 0.03. Likely demand after being down for so many hours. -TTE negative for any remarkable findings. -On telemetry. (3) HTN (hypertension) Current Visit: No Status: Acute Code(s): I10 - ESSENTIAL (PRIMARY) HYPERTENSION SNOMED Code(s): 24139588 Comment: -Hold hydrochlorothiazide. Bp within acceptable limits. (4) DVT prophylaxis Current Visit: No Status: Acute Code(s): PGG9046 - SNOMED Code(s): 662484207 Comment: - SQ heparin. (5) Full code status Current Visit: No Status: Acute Code(s): Z78.9 - OTHER SPECIFIED HEALTH STATUS SNOMED Code(s): 971541083 Status and Disposition: Condition: Guarded Disposition: Admit inpatient to . Attending: Kota Norton
[2019-11-02] MEDS: Acetaminophen TAB* 325 MG PO PRN (17:47)
[2019-11-02] MEDS: Cyclobenzaprine TAB* 10 MG PO PRN (17:48)
[2019-11-02] MEDS: oxyCODONE TAB* 5 MG TAB PO PRN (18:39)
[2019-11-03] MEDS: Heparin VIAL(*) 5000 UNITS/ML VIAL (FIVE THOUSAND) SUBCUT SCH (05:25)
[2019-11-03] MEDS: oxyCODONE TAB* 5 MG TAB PO PRN ×3 (07:51→22:53)
[2019-11-03] MEDS: Cyclobenzaprine TAB* 10 MG PO PRN ×2 (10:01→22:52)
--- NOTE | 2019-11-03 12:11 | PN ---
Subjective Date of Service: 11/03/19 Interval History: Ms. Christensen is not feeling well this morning. She was upset that I woke her on my arrival. Reports significant back pain with movement. Went down to xray earlier and refused to get OOB for films because of pain and fear of falling. Denies CP, SOB. No concerns from nursing. Family History: Unchanged from Admission Social History: Unchanged from Admission Past Medical History: Unchanged from Admission Objective Active Medications: Acetaminophen (Tylenol Tab*) 650 mg PO Q4H PRN Pain Or Temperature >101 F Cyclobenzaprine HCl (Flexeril Tab*) 10 mg PO TID PRN SPASMS - MUSCLE Heparin Sodium (Porcine) (Heparin Vial(*)) 5,000 units SUBCUT Q8HR MARIE Ondansetron HCl (Zofran Inj*) 4 mg IV Q6H PRN NAUSEA Oxycodone HCl (Roxycodone Tab*) 5 mg PO Q4H PRN PAIN - SEVERE Vital Signs - 8 hr 11/03/19 11/03/19 11/03/19 07:15 07:51 10:01 Temperature 98.2 F Pulse Rate 81 Respiratory 20 16 16 Rate Blood Pressure 140/69 (mmHg) O2 Sat by Pulse 96 Oximetry Oxygen Devices in Use Now: Nasal Cannula - 2L Appearance: Elderly female lying in bed in NAD Ears/Nose/Mouth/Throat: Mucous Membranes Moist Neck: NL Appearance and Movements; NL JVP, Trachea Midline Respiratory: Symmetrical Chest Expansion and Respiratory Effort, Clear to Auscultation Cardiovascular: NL Sounds; No Murmurs; No JVD, RRR Abdominal: NL Sounds; No Tenderness; No Distention Neurological: Alert and Oriented x 3 Lines/Tubes/Other Access: Clean, Dry and Intact Peripheral IV Nutrition: Taking PO's Result Diagrams: 11/02/19 05:50 11/02/19 05:50 Assess/Plan/Problems-Billing Assessment: Ms. Christensen is an 89 yo F with PMH of ovarian cancer and HTN; who was admitted s/p mechanical fall, suspected to have been down for over 12 hours before discovered. - Patient Problems (1) Fall Comment: - Stated that she fell after attempting to do physical therapy exercises given to her after last hospitalization; was on the floor for 12+ hours without moving due to pain - No evidence for rhabdo - PT/OT evals, suspect will need [facility] (2) Compression fracture Comment: - Elicited pain with palpation at thoracic level, no pain at cervical level - CT lumbar spine which showed new compression fracture of L2; CT of thoracic spine done in [place] showed old T11 and L1 fractures present since 2014 - Spoke with Dr. Resendiz who recommended TLSO brace and take upright lumbar xray with once brace is in place - Continue Flexeril, Tramadol, oxycodone (3) Elevated troponin Code(s): R79.89 - OTHER SPECIFIED ABNORMAL FINDINGS OF BLOOD CHEMISTRY Comment : - Troponin elevated to 0.04, trended down to 0.03 - Likely demand from being down after fall - TTE shows mild to mod , normal EF (4) HTN (hypertension) Code(s): I10 - ESSENTIAL (PRIMARY) HYPERTENSION Comment: - Normotensive - Hold hydrochlorothiazide (5) DVT prophylaxis Comment: - Lovenox (6) Full code status Code(s): Z78.9 - OTHER SPECIFIED HEALTH STATUS Comment: Status and Disposition: Inpatient. Anticipate d/c to [facility] when medically stable. Attending: Kathy Villagran
[2019-11-03] MEDS: Enoxaparin(*) 40 MG/0.4 ML SYR SUBCUT SCH (12:38)
[2019-11-04] MEDS: oxyCODONE TAB* 5 MG TAB PO PRN ×2 (08:55→17:31)
[2019-11-04] MEDS: Cyclobenzaprine TAB* 10 MG PO PRN (12:29)
[2019-11-04] MEDS: Enoxaparin(*) 40 MG/0.4 ML SYR SUBCUT SCH (13:17)
--- NOTE | 2019-11-04 14:36 | PN ---
Subjective Date of Service: 11/04/19 Interval History: Ms. Christensen is feeling better today. She is sitting up in a chair on exam. She is not sure how exactly she got to the chair. She thinks her back pain is improved, but still refusing to attempt xray. Denies CP or SOB. No concerns from nursing. Family History: Unchanged from Admission Social History: Unchanged from Admission Past Medical History: Unchanged from Admission Objective Active Medications: Acetaminophen (Tylenol Tab*) 650 mg PO Q4H PRN Pain Or Temperature >101 F Cyclobenzaprine HCl (Flexeril Tab*) 10 mg PO TID PRN SPASMS - MUSCLE Enoxaparin Sodium (Lovenox(*)) 40 mg SUBCUT Q24H MARIE Ondansetron HCl (Zofran Inj*) 4 mg IV Q6H PRN NAUSEA Oxycodone HCl (Roxycodone Tab*) 10 mg PO Q4H PRN PAIN - SEVERE Oxycodone HCl (Roxycodone Tab*) 5 mg PO Q4H PRN PAIN - MODERATE Vital Signs - 8 hr 11/04/19 11/04/19 11/04/19 07:15 08:55 11:15 Temperature 98.2 F 98.2 F Pulse Rate 83 84 Respiratory 20 18 18 Rate Blood Pressure 140/68 120/75 (mmHg) O2 Sat by Pulse 96 97 Oximetry Oxygen Devices in Use Now: Nasal Cannula - 2L Appearance: Elderly female sitting in chair in NAD Ears/Nose/Mouth/Throat: Mucous Membranes Moist Neck: NL Appearance and Movements; NL JVP, Trachea Midline Respiratory: Symmetrical Chest Expansion and Respiratory Effort, Clear to Auscultation Cardiovascular: NL Sounds; No Murmurs; No JVD, RRR Neurological: - - Oriented to self and place Lines/Tubes/Other Access: Clean, Dry and Intact Peripheral IV Nutrition: Taking PO's Result Diagrams: 11/02/19 05:50 11/02/19 05:50 Assess/Plan/Problems-Billing Assessment: Ms. Christensen is an 89 yo F with PMH of ovarian cancer and HTN; who was admitted s/p mechanical fall, suspected to have been down for over 12 hours before discovered. - Patient Problems (1) Fall Comment: - Stated that she fell after attempting to do physical therapy exercises given to her after last hospitalization; was on the floor for 12+ hours without moving due to pain - No evidence for rhabdo - PT/OT evals; will need [facility] (2) Compression fracture Comment: - Elicited pain with palpation at thoracic level, no pain at cervical level - CT lumbar spine which showed new compression fracture of L2; CT of thoracic spine done in [place] showed old T11 and L1 fractures present since 2014 - Spoke with Dr. Resendiz who recommended TLSO brace and take upright lumbar xray with once brace is in place, though patient was not able to stand for xray and is refusing to reattempt - Continue Flexeril, Tramadol, oxycodone (3) Elevated troponin Code(s): R79.89 - OTHER SPECIFIED ABNORMAL FINDINGS OF BLOOD CHEMISTRY Comment : - Troponin elevated to 0.04, trended down to 0.03 - Likely demand from being down after fall - TTE shows mild to mod , normal EF (4) HTN (hypertension) Code(s): I10 - ESSENTIAL (PRIMARY) HYPERTENSION Comment: - Normotensive - Hold hydrochlorothiazide (5) DVT prophylaxis Comment: - Lovenox (6) Full code status Code(s): Z78.9 - OTHER SPECIFIED HEALTH STATUS Comment: Status and Disposition: Inpatient. Anticipate d/c to [facility] when bed offer secured. Attending: Kathy Villagran
[2019-11-05] MEDS: oxyCODONE TAB* 5 MG TAB PO PRN ×3 (08:09→21:24)
[2019-11-05] MEDS: Enoxaparin(*) 40 MG/0.4 ML SYR SUBCUT SCH (13:33)
--- NOTE | 2019-11-05 13:51 | PN ---
Subjective Date of Service: 11/05/19 Interval History: Ms. Christensen is feeling better this morning. She thinks her pain is improving. She is sitting up in the chair, but is not sure how she did getting up to the chair. She reports that she remembers screaming while staff was moving her. Denies CP, SOB, N/V. No concerns from nursing. Family History: Unchanged from Admission Social History: Unchanged from Admission Past Medical History: Unchanged from Admission Objective Active Medications: Acetaminophen (Tylenol Tab*) 650 mg PO Q4H PRN Pain Or Temperature >101 F Cyclobenzaprine HCl (Flexeril Tab*) 10 mg PO TID PRN SPASMS - MUSCLE Enoxaparin Sodium (Lovenox(*)) 40 mg SUBCUT Q24H MARIE Ondansetron HCl (Zofran Inj*) 4 mg IV Q6H PRN NAUSEA Oxycodone HCl (Roxycodone Tab*) 10 mg PO Q4H PRN PAIN - SEVERE Oxycodone HCl (Roxycodone Tab*) 5 mg PO Q4H PRN PAIN - MODERATE Vital Signs - 8 hr 11/05/19 11/05/19 11/05/19 07:15 08:00 08:09 Temperature 97.3 F Pulse Rate 87 Respiratory 20 20 18 Rate Blood Pressure 146/72 (mmHg) O2 Sat by Pulse 96 Oximetry 11/05/19 11/05/19 11:15 13:32 Temperature 96.9 F Pulse Rate 79 Respiratory 20 18 Rate Blood Pressure 114/68 (mmHg) O2 Sat by Pulse 97 Oximetry Oxygen Devices in Use Now: Nasal Cannula - 2L Appearance: Elderly female sitting in chair in NAD Ears/Nose/Mouth/Throat: Mucous Membranes Moist Neck: NL Appearance and Movements; NL JVP, Trachea Midline Respiratory: Symmetrical Chest Expansion and Respiratory Effort, Clear to Auscultation Cardiovascular: NL Sounds; No Murmurs; No JVD, RRR Extremities: No Edema Neurological: - - Oriented to self and place Lines/Tubes/Other Access: Clean, Dry and Intact Peripheral IV Nutrition: Taking PO's Result Diagrams: 11/02/19 05:50 11/02/19 05:50 Assess/Plan/Problems-Billing Assessment: Ms. Christensen is an 89 yo F with PMH of ovarian cancer and HTN; who was admitted s/p mechanical fall, suspected to have been down for over 12 hours before discovered. - Patient Problems (1) Fall Comment: - Stated that she fell after attempting to do physical therapy exercises given to her after last hospitalization; was on the floor for 12+ hours without moving due to pain - No evidence for rhabdo - PT/OT evals; will need [facility] (2) Compression fracture Comment: - Elicited pain with palpation at thoracic level, no pain at cervical level - CT lumbar spine which showed new compression fracture of L2; CT of thoracic spine done in [place] showed old T11 and L1 fractures present since 2014 - Spoke with Dr. Resendiz who recommended TLSO brace and take upright lumbar xray with once brace is in place, though patient was not able to stand for xray and is refusing to reattempt - Continue Flexeril, Tramadol, oxycodone (3) Elevated troponin Code(s): R79.89 - OTHER SPECIFIED ABNORMAL FINDINGS OF BLOOD CHEMISTRY Comment : - Troponin elevated to 0.04, trended down to 0.03 - Likely demand from being down after fall - TTE shows mild to mod , normal EF (4) HTN (hypertension) Code(s): I10 - ESSENTIAL (PRIMARY) HYPERTENSION Comment: - Normotensive - Hold hydrochlorothiazide (5) DVT prophylaxis Comment: - Lovenox (6) Full code status Code(s): Z78.9 - OTHER SPECIFIED HEALTH STATUS Comment: Status and Disposition: Inpatient. Anticipate d/c to [facility] on Friday. Attending: Kathy Villagran
[2019-11-05] MEDS: Cyclobenzaprine TAB* 10 MG PO PRN (21:23)
[2019-11-06] MEDS: oxyCODONE TAB* 5 MG TAB PO PRN ×2 (07:44→20:08)
[2019-11-06] MEDS: Polyethylene Glycol 3350* 17 GM PACKET PO SCH ×2 (07:44→20:08)
[2019-11-06] MEDS: Enoxaparin(*) 40 MG/0.4 ML SYR SUBCUT SCH (13:42)
--- NOTE | 2019-11-06 16:09 | PN ---
Subjective Date of Service: 11/06/19 Interval History: Ms. Christensen thinks she is feeling better today. She denies back pain, but the brace is bothersome. Has not been OOB today. Feels tired. Denies CP, SOB. Good appetite. No concerns from nursing. Family History: Unchanged from Admission Social History: Unchanged from Admission Past Medical History: Unchanged from Admission Objective Active Medications: Acetaminophen (Tylenol Tab*) 650 mg PO Q4H PRN Pain Or Temperature >101 F Cyclobenzaprine HCl (Flexeril Tab*) 10 mg PO TID PRN SPASMS - MUSCLE Enoxaparin Sodium (Lovenox(*)) 40 mg SUBCUT Q24H MARIE Ondansetron HCl (Zofran Inj*) 4 mg IV Q6H PRN NAUSEA Oxycodone HCl (Roxycodone Tab*) 10 mg PO Q4H PRN PAIN - SEVERE Oxycodone HCl (Roxycodone Tab*) 5 mg PO Q4H PRN PAIN - MODERATE Polyethylene Glycol/Electrolytes (Miralax (17 Gm Dose Raghu)) 17 gm PO 0800,2100 [facility] Vital Signs - 8 hr 11/06/19 11/06/19 11:05 11:15 Temperature 98.3 F Pulse Rate 78 Respiratory 18 18 Rate Blood Pressure 131/63 (mmHg) O2 Sat by Pulse 96 Oximetry Oxygen Devices in Use Now: Nasal Cannula - 2L Appearance: Elderly female lying in bed in NAD Ears/Nose/Mouth/Throat: Mucous Membranes Moist Neck: NL Appearance and Movements; NL JVP, Trachea Midline Respiratory: Symmetrical Chest Expansion and Respiratory Effort, Clear to Auscultation Cardiovascular: NL Sounds; No Murmurs; No JVD, RRR Abdominal: NL Sounds; No Tenderness; No Distention Extremities: No Edema Neurological: - - Oriented to self and place Lines/Tubes/Other Access: Clean, Dry and Intact Peripheral IV Nutrition: Taking PO's Result Diagrams: 11/02/19 05:50 11/02/19 05:50 Assess/Plan/Problems-Billing Assessment: Ms. Christensen is an 89 yo F with PMH of ovarian cancer and HTN; who was admitted s/p mechanical fall, suspected to have been down for over 12 hours before discovered. - Patient Problems (1) Fall Comment: - Stated that she fell after attempting to do physical therapy exercises given to her after last hospitalization; was on the floor for 12+ hours without moving due to pain - No evidence for rhabdo - PT/OT evals; will need [facility] (2) Compression fracture Comment: - Elicited pain with palpation at thoracic level, no pain at cervical level - CT lumbar spine which showed new compression fracture of L2; CT of thoracic spine done in [place] showed old T11 and L1 fractures present since 2014 - Spoke with Dr. Resendiz who recommended TLSO brace and take upright lumbar xray with once brace is in place, though patient was not able to stand for xray and is refusing to reattempt - Continue Flexeril, Tramadol, oxycodone (3) Elevated troponin Code(s): R79.89 - OTHER SPECIFIED ABNORMAL FINDINGS OF BLOOD CHEMISTRY Comment : - Troponin elevated to 0.04, trended down to 0.03 - Likely demand from being down after fall - TTE shows mild to mod , normal EF (4) HTN (hypertension) Code(s): I10 - ESSENTIAL (PRIMARY) HYPERTENSION Comment: - Normotensive - Hold hydrochlorothiazide (5) DVT prophylaxis Comment: - Lovenox (6) Full code status Code(s): Z78.9 - OTHER SPECIFIED HEALTH STATUS Comment: Status and Disposition: Inpatient. D/c to [facility] on Friday. Attending: Carmella Rosen
[2019-11-06] MEDS: Cyclobenzaprine TAB* 10 MG PO PRN (20:09)
[2019-11-07] MEDS: Cyclobenzaprine TAB* 10 MG PO PRN ×2 (06:27→20:21)
[2019-11-07] MEDS: oxyCODONE TAB* 5 MG TAB PO PRN ×3 (06:28→20:21)
[2019-11-07] MEDS: Polyethylene Glycol 3350* 17 GM PACKET PO SCH ×2 (08:38→20:21)
[2019-11-07] MEDS ORDERED: Magnesium Hydroxide LIQ* 30 ML UDC PO PRN (11:11)
[2019-11-07] MEDS ORDERED: Senna TAB 8.6 mg* TAB PO PRN (11:11)
[2019-11-07] MEDS ORDERED: Sodium Phosphate ADULT ENEMA* 118 ml bottle PR PRN (11:11)
[2019-11-07] MEDS: Enoxaparin(*) 40 MG/0.4 ML SYR SUBCUT SCH (12:57)
--- NOTE | 2019-11-07 21:51 | DS ---
DISCHARGE SUMMARY: DATE OF ADMISSION: 10/30/19 ANTICIPATED DATE OF DISCHARGE: 11/08/19 (this is being dictated one day in advance). PRIMARY CARE PROVIDER: None. ATTENDING PHYSICIAN: Dr. Carmella Rosen.* (DICTATED BY RAQUEL COLE NP) PRIMARY DIAGNOSES: 1. Acute L2 compression fracture. 2. Fall prior to admission. SECONDARY DIAGNOSES: 1. Hypertension. 2. History of ovarian cancer. STUDIES WHILE IN THE HOSPITAL: EKG on 10/30/19 is normal sinus rhythm with a rate of 82, occasional PACs, right bundle branch block, Q waves in inferior leads. Transthoracic echocardiogram on 10/31/19 reads as the left ventricular size is moderately reduced. Wall thickness is moderately increased. There is focal basal hypertrophy. Systolic function is vigorous. The estimated ejection fraction is 60% to 65%. There is no evidence of left ventricular outflow tract obstruction at rest based on serial Doppler. The patient at risk for dynamic obstruction. Right ventricular systolic function is normal. The mitral valve annulus appears calcified. The leaflets are mildly calcified. There is trace mitral regurgitation. Findings are consistent with mild-to- moderate aortic stenosis. There is trace tricuspid regurgitation. Systolic pressure in the pulmonaries cannot accurately estimated. No prior echocardiogram available to compare. Lumbar spine CT on 10/31/19 reads as when compared to 07/29/19, there has been interval development of compression deformity of L2 with moderate osseous retropulsion resulting in mild to moderate narrowing of the central canal at this level. Osteopenia. Degenerative disk disease, and osteoarthritis. There is a chronic compression deformity of L1 stable. There is mild narrowing of central canal at L2-L3 and L4-L5. There is multilevel neural foramen narrowing as described in the body of the report. Diverticulosis. Atherosclerosis. HISTORY OF PRESENT ILLNESS AND HOSPITAL COURSE: Ms. Christensen is an 89-year- old female with a past medical history of hypertension, who presented to the emergency room on 10/30/19 after a fall. Please see the history and physical by Dr. Betancourt for complete summary of the events leading up to this hospitalization. Reportedly, the patient had a mechanical fall at home when her leg gave out and she was on the floor for greater than 12 hours before she was found by her grandson. In the emergency room, she had imaging as noted above. There were no acute abnormalities except for a mildly elevated troponin at 0.03. She was significantly weak and so was admitted by the hospitalist service. The patient was complaining of back pain after her fall and so a CT was performed with results noted above. The provider at that time spoke with neurosurgery who recommended a TLSO brace with upright lumbar x-ray. Once the brace was in place, the patient did get a brace on 11/02/19 though when attempted to x-ray her, the patient complained of severe pain and was unable to stand, therefore, refusing the x-ray. She has continued to refuse the x-ray and was noted to be moderate to max to assist by Physical Therapy. So, it was determined that the patient would benefit from subacute rehab, which she was agreeable to. She has remained stable while here in the hospital awaiting a rehab bed without any further concerns. PHYSICAL EXAMINATION: On exam, the patient is alert and oriented x4, with no focal neurological deficits though she has generalized weakness. Heart: Has a regular rate and rhythm without murmurs, rubs or gallops. Lungs: Clear to auscultation without rhonchi, wheezes or rubs. There is no edema. Abdomen is soft and nontender. Physical exam was otherwise benign. Ms. Christensen is stable for discharge. Most recent vitals are as follows: Temp 97.3, heart rate 84, respiratory rate 20, oxygen saturation 93% on room air , blood pressure 132/67. DISCHARGE MEDICATIONS: New: 1. Flexeril 10 mg p.o. t.i.d. p.r.n. muscle spasm. 2. MiraLax 17 g p.o. b.i.d. 3. Senna 1 tab p.o. at bedtime p.r.n. constipation. Continued: 1. Acetaminophen 650 mg p.o. q.4 hours p.r.n. fever or pain. 2. Calcium 1200 mg p.o. daily. 3. Cholecalciferol 1000 units p.o. daily. 4. Garlic 1250 mg p.o. daily. 5. Hydrochlorothiazide 25 mg p.o. daily. 6. Percocet 5/325 1 tab p.o. q.4 hours p.r.n. pain. DISCHARGE PLAN: Ms. Christensen will be discharged to subacute rehab. Activity will be as tolerated. The patient should wear the TLSO brace per neurosurgery recommendations because we were unable to obtain an x-ray of her in the brace. She will need to follow up outpatient with Neurosurgery within the next month. Diet will be regular as tolerated. Medications are noted above. The patient has been placed on a bowel regimen and Flexeril, but her medications otherwise remained unchanged. She should follow up with a provider upon arrival to the rehab facility. She is to return to the emergency room or nearest hospital for any worsening of symptoms, shortness of breath, lightheadedness, dizziness, chest discomfort, high fevers, chills, night sweats, loss of consciousness or any other worrisome signs or symptoms. DISCHARGE CONDITION: Stable. DISCHARGE DISPOSITION: [facility]. This is a summarized report of a complex medical history and hospital stay. For further details, please see the entire medical record. TIME SPENT: Approximately 45 minutes was spent on this discharge. RAQUEL COLE, YOLETTE [id number]/CPS #: [id number] TRAY
[2019-11-08] MEDS: Acetaminophen TAB* 325 MG PO PRN (03:38)
[2019-11-08] MEDS: oxyCODONE TAB* 5 MG TAB PO PRN ×2 (03:39→10:46)
[2019-11-08 08:34] VITALS: BP 132/74
[2019-11-08] MEDS: Polyethylene Glycol 3350* 17 GM PACKET PO SCH (08:57)
[2019-11-08] MEDS: Cyclobenzaprine TAB* 10 MG PO PRN (10:46)
== END 2019-11-08 10:46 | DRG 552 ==
LOC: MEDTELE 09:00 → INTOOBSV 19:48 → MEDTELE 19:48 → OBSVTOIN 10-31 09:00
PROVIDERS: ADMIT Internal Medicine; ATTEND Hospitalist
DX: S32.029A Unspecified fracture of second lumbar vertebra, initial encounter for closed fracture (principal); I45.2 Bifascicular block; I10 Essential (primary) hypertension; R79.89 Other specified abnormal findings of blood chemistry; W19.XXXA Unspecified fall, initial encounter; Z85.43 Personal history of malignant neoplasm of ovary; Y92.009 Unspecified place in unspecified non-institutional (private) residence as the place of occurrence of the external cause
CPT/HCPCS: 36415; 72131; 80048; 80053; 82550; 82553; 83735; 84443; 84484; 85025; 85027; 90686; 90732; 93005; 93306; A9270-GY; J1644; J1650; J2405